=== PATIENT | female | born 1950 | race Caucasian/White ===

== ENCOUNTER 2019-08-11 15:52 | Observation (INO) | payer MEDICARE, MEDICAID, SELFPAY ==
--- NOTE | ~2019-08-11 | XR_ITS ---
EXAMINATION: XR hip LT 2V w AP pelvis DATE: 08/11/2019 16:49 INDICATION: Left hip pain post fall TECHNIQUE: Anteroposterior view of the pelvis and anteroposterior, frog leg and cross-table lateral v iews of the left hip were obtained. COMPARISON: None. FINDINGS: Alignment is normal. No fracture. Mild bilateral hip and sacroiliac osteoarthritis. Arterial calcinat ion along the bilateral femoral arteries. Soft tissues are unremarkable. IMPRESSION: 1. Mild polyarticular osteoarthritis. No acute osseous abnormality. Reviewed, dictated and finalized at location A. ENGINEER
--- NOTE | ~2019-08-11 | CT_ITS ---
EXAMINATION: CT pelvis wo con DATE: 08/11/2019 17:53 INDICATION: Left hip pain post fall TECHNIQUE: High resolution computed tomography (CT) of the pelvis was performed without intravenous c ontrast. Additional sagittal and coronal reconstructions were performed. Automated exposure control a nd iterative reconstruction technique were employed. The dose-length product was 516.87 mGy-cm. COMPARISON: Pelvis and left hip radiographs dated 08/11/2019 FINDINGS: Nondisplaced fracture at the left pubic body. Additional subtle nondisplaced fracture at the junction of the left superior pubic ramus and the anterior left acetabulum. It is unclear whether there is in tra-articular extension with no evident fracture gap or lucency along the articular cortices and no l eft hip joint effusion. Nondisplaced sagittally oriented fracture at the lateral aspect of the left s acral ala paralleling the left sacral iliac joint with no evident involvement of the neural foramina. Polyarticular osteoarthritis, mild at the left hip, mild to moderate at the right hip and severe at the bilateral lower lumbar facet joints. The uterus is not identified and has likely been surgically resected. Trace amount of free fluid in the pelvis. Visualized portion of the bowels including the ap pendix are unremarkable. IMPRESSION: 1. Nondisplaced fractures of the left sacral ala, left pubic body and at the lateral base of the left superior pubic ramus, the latter potentially with intra-articular extension at the left acetabulum. Reviewed, dictated and finalized at location A. TABLE TRIMMER IMPRESSION: 1. Nondisplaced fractures of the left sacral ala, left pubic body and at the la teral base of the left superior pubic ramus, the latter potentially with intra- articular extension at the left acetabulum.
--- NOTE | ~2019-08-11 | CT_ITS ---
EXAMINATION: CT cervical spine wo con DATE: 08/11/2019 16:27 INDICATION: Fall with head injury TECHNIQUE: Computed tomography (CT) of the cervical spine was performed without intravenous contrast. Automated exposure control and iterative reconstruction technique were employed. The dose-length pro duct was 291.74 mGy-cm. COMPARISON: 06/28/2012 FINDINGS: Unchanged straightening of the normal cervical lordosis and minimal cervical levocurvature. Vertebral body heights are normal. No fracture. Progression of disc height loss and degenerative endplate peck ges throughout the cervical spine. Disc height loss is of moderate severity at C3-C4, C4-C5 and C6-C7 and mild at C2-C3 and C5-C6. Visualized airway and apices of the lungs are clear. Cervical soft tiss ues are unremarkable. The following disc levels are specifically discussed: C2-C3: Disc is mildly bulging. There is mild bilateral uncovertebral joint osteoarthritis. There is m ild bilateral facet joint osteoarthritis. There is no neural foraminal stenosis. There is no central canal stenosis. C3-C4: Disc is bulging. There is moderate right and severe left uncovertebral joint osteoarthritis. T here is mild to moderate bilateral facet joint osteoarthritis. There is mild left neural foraminal st enosis. There is mild to moderate central canal stenosis. C4-C5: Disc is bulging. There is severe left and moderate right uncovertebral joint osteoarthritis. T here is mild bilateral facet joint osteoarthritis. There is mild bilateral neural foraminal stenosis. There is mild central canal stenosis. C5-C6: Disc is bulging. There is mild right and moderate left uncovertebral joint osteoarthritis. The re is mild bilateral facet joint osteoarthritis. There is no neural foraminal stenosis. There is mild central canal stenosis. C6-C7: Disc is bulging There is better to severe bilateral uncovertebral joint osteoarthritis. There is mild to moderate bilateral facet joint osteoarthritis. There is mild to moderate bilateral neural foraminal stenosis. There is mild central canal stenosis. C7-T1: The disc does not extend beyond the endplate margin. There is no uncovertebral joint osteoarth ritis. There is altered left and severe right facet joint osteoarthritis. There is no neural foramina l stenosis. There is no central canal stenosis. IMPRESSION: 1. Interval progression of now moderate to severe cervical spondylosis. No acute osseous abnormality. Reviewed, dictated and finalized at location A. SPECIALIST IMPRESSION: 1. Interval progression of now moderate to severe cervical spondylosis. No acut e osseous abnormality.
--- NOTE | ~2019-08-11 | XR_ITS ---
EXAMINATION: XR knee LT 3V DATE: 08/11/2019 17:41 INDICATION: Generalized left knee pain TECHNIQUE: Anteroposterior, oblique and cross-table lateral views of the left knee were obtained. COMPARISON: None. FINDINGS: Mild genu varus. No fracture. Tricompartmental osteoarthritis, advanced the medial compartment with s evere joint space loss and remodeling of the medial tibial plateau. Chondrocalcinosis in the lateral compartment. Moderate to large marginal osteophytes in all 3 compartments. No left knee joint effusio n or layering lipohemarthrosis. Arterial calcifications at the distal thigh and proximal calf. IMPRESSION: 1. No left knee joint effusion or acute osseous abnormality. 2. Tricompartmental osteoarthritis, advanced in the medial compartment. Reviewed, dictated and finalized at location A. ENT FINISHER
--- NOTE | ~2019-08-11 | XR_ITS ---
EXAMINATION: XR chest 1V portable DATE: 08/11/2019 16:48 INDICATION: Fall. Vertigo. TECHNIQUE: frontal view of the chest was obtained. COMPARISON: Chest radiograph dated 09/21/2014 FINDINGS: The lungs remain clear with no focal airspace opacities, pulmonary edema, pleural effusion or pneumot horax. The cardiomediastinal silhouette is normal. Visualized bones and soft tissues are unremarkable . IMPRESSION: 1. No acute cardiopulmonary disease. Reviewed, dictated and finalized at location A. RENCE ARCHIVIST
--- NOTE | ~2019-08-11 | CT_ITS ---
EXAMINATION: CT brain wo con INDICATION: Head injury COMPARISON: 06/28/2012 TECHNIQUE: Standard unenhanced head CT. The dose-length product (DLP) was 605.33 mGy-cm. The mA was a djusted according to patient size. Iterative reconstruction technique was employed. FINDINGS: There is no acute intraparenchymal hemorrhage. No evidence of mass lesion. No evidence of a cute infarction. There is mild periventricular and subcortical hypodensity probably related to small vessel ischemic disease. There is mild prominence of the sulci and ventricles related to cerebral atr ophy. Intracranial calcified cerebral atherosclerosis is noted. There are no extra-axial collections. There is no mass effect or midline shift. The orbits and soft tissues are unremarkable. There is mi ld mucosal thickening of the paranasal sinuses. IMPRESSION: 1. No acute intracranial abnormality. 2. Age related findings. Reviewed, dictated and finalized at location B. H MACHINE OPERATOR
[2019-08-11 16:01] VITALS: BP 175/74; PULSE 73; RESP 18; TEMP 36.6; O2SAT 100
--- NOTE | 2019-08-11 16:03 | ED.GENADULT ---
HPI - General Adult General Chief complaint: Fall Stated complaint: L HIP PAIN/S/P FALL Time Seen by Provider: 08/11/19 16:02 Source: patient and RN notes reviewed Mode of arrival: EMS Limitations: no limitations History of Present Illness HPI narrative: Pt is a 69 y/o female who presents to the ED, via EMS, with c/o a fall. Pt reports that she normally uses a wheelchair, but had been singing and dancing in her living room when she fell down hard. She notes having hit her head and having neck pain, but the most pain is in her lt hip. Pt denies syncope. Associated symptoms: other (Head injury; neck pain; lt hip pain) Related Data Home Medications Medication Instructions Recorded Confirmed atorvastatin 08/11/19 buspirone mg 08/11/19 calcitriol 08/11/19 dicyclomine mg 08/11/19 ergocalciferol (vitamin D2) 50,000 unit PO WEEKLY 08/11/19 08/11/19 escitalopram oxalate [Lexapro] 10 mg PO DAILY 08/11/19 08/11/19 insulin detemir U-100 [Levemir 15 unit SUBCUT 08/11/19 U-100 Insulin] loperamide [Imodium A-D] 2 mg PO Q2-4H PRN 08/11/19 08/11/19 lorazepam 08/11/19 lurasidone [Latuda] mg 08/11/19 magnesium oxide 400 mg PO DAILY 08/11/19 08/11/19 omega 1-ugn-zhr-fish oil [Fish Oil] 1 cap PO BID 08/11/19 08/11/19 sitagliptin [Januvia] 25 mg PO DAILY 08/11/19 08/11/19 Allergies Allergy/AdvReac Type Severity Reaction Status Date / Time propoxyphene Allergy Severe Confusion, Verified 08/11/19 16:16 LOOSES CONTROL acetaminophen Allergy Unknown Unknown Verified 08/11/19 16:16 iodine Allergy Unknown Unknown Verified 08/11/19 16:16 Contrast Media Allergy Unknown Unknown Uncoded 08/11/19 16:16 HYDROCODONE BIT Allergy Unknown Unknown Uncoded 08/11/19 16:16 Review of Systems Review of Systems: All systems reviewed & are unremarkable except as noted in HPI and below Musculoskeletal: Musculoskeletal: Reports neck pain and Reports other (lt hip pain) Neurologic: Denies syncope and Reports other (Head injury) [facility] Past Medical History Medical History (Updated 08/11/19 @ 18:44 by Pasha Guthrie DO) Uses wheelchair (Acute) Social History Social History Smoking status: Never smoker Second hand tobacco smoke exposure: No Alcohol intake: never Gender identity (if verbalized by the patient): Female Exam Narrative: Exam Narrative: APPEARANCE: Well appearing, no apparent distress, well-nourished. HEENT: normocephalic atraumtaic. TMs clear bilaterally. Oral mucosa moist. No tenderness over bilateral zygomatic arch. Full range of motion of jaw without pain. EYES: PERRL NECK: Supple. No midline tenderness to palpation. Tender palpation bilateral paravertebral muscle C5-7 RESPIRATORY: No respiratory distress. Clear to auscultation bilaterally CARDIOVASCULAR: Regular rate and rhythm without murmurs rubs or gallops. ABDOMINAL: Soft, nontender, nondistended, no rebound or guarding MUSCULOSKELETAl: Moves all extremities. No tenderness to palpation of bilateral upper and Right lower extremities. No clubbing cyanosis or edema. Tender palpation left lateral and anterior hip, no swelling or ecchymosis, pain with any motion of the hip, palpation of the anterior knee, no tenderness of the medial lateral knee, pain with flexion greater than 45 degrees, no tenderness of the ankle, dorsalis pedis pulse 2+ Back: No midline thoracic or lumbar tenderness to palpation Pelvis: Stable, nontender NEURO: Awake and alert ?3. Follows commands. Speech normal. No focal deficits. SKIN:: Warm, dry. Normal Color Course Course Emergency Course: discussed with Dr. Funk presentation work-up. States the patient is to be nonweightbearing. Agrees with consult Discussed with CORBIN Lopez presentation work-up he agrees with admission at this time Discussed with patient and family results of workup and diagnosis. Discussed need for admission. Patient and family understand and agree to current treatment plan Vital Signs Vital signs: Vital Signs
--- NOTE | 2019-08-11 17:39 | PC.NURSE ---
PT getting Xrays and then going [place] [facility] [place]
--- NOTE | 2019-08-11 18:32 | PC.NURSE ---
Mini mental evaluation sent to [facility] for review
[2019-08-11 18:47] LABS: Basophils Percent Auto 0.2 % (0.2-1.2); Eosinophils Absolute Auto 0.1 K/mm3 (0-0.3); Eosinophils Percent Auto 0.8 % (0-4.4); Hematocrit 26.5 % (37.0-47.0); Hemoglobin 8.6 g/dL (12.0-15.0); Immature Granulocyte Absolute 0.08 K/mm3 (0.00-0.031); Immature Granulocyte Percent A 0.9 % (0-0.5); Lymphocytes Absolute Auto 0.68 K/mm3 (0.9-3.2); Lymphocytes Percent Auto 7.7 % (18.3-44.2); Mean Corpuscular HGB Conc 32.5 g/dl (32-36); Mean Corpuscular Volume 95.7 fl (80-100); Mean Platelet Volume 10.3 fl (7.4-10.4); Monocytes Absolute Auto 0.7 K/mm3 (0.1-0.6); Monocytes Percent Auto 7.6 % (2.6-8.5); Neutrophils Absolute Auto 7.3 K/mm3 (1.3-6.7); Neutrophils Percent Auto 82.8 % (45.5-73.1); Platelet Count Result 138 k/mm3 (150-375); Red Blood Count 2.77 M/mm3 (4.2-5.4); Red Cell Distribution Width 12.8 % (11.5-14.5); White Blood Count 8.8 K/mm3 (4.5-10.0)
[2019-08-11 18:59] LABS: Blood Urea Nitrogen 72 mg/dL (7-17); Calcium 10.1 mg/dL (8.4-10.2); Carbon Dioxide 21 mmol/L (22-30); Chloride 107 mmol/L (98-107); Estimated CRCL calculation 12 ml/min; Estimated Glomerular Filt Rate 11; Glucose 112 mg/dL (65-105); Sodium 141 mmol/L (137-145)
[2019-08-11 19:05] VITALS: BP 158/67; PULSE 81; RESP 16; O2SAT 100
[2019-08-11 20:01] VITALS: BP 179/73; PULSE 82; RESP 18; O2SAT 94
[2019-08-11 20:15] VITALS: BP 154/72; PULSE 84; RESP 18; TEMP 36.7; O2SAT 100; BMI 31.1
[2019-08-11 21:36] LABS: Glucose Point of Care 108 (65-105)
[2019-08-11] MEDS: MORPHINE SULFATE 2 MG/ML INJ IV PUSH (22:52)
[2019-08-12 00:12] VITALS: BP 121/57; PULSE 77; RESP 18; TEMP 36.6; O2SAT 97
--- NOTE | 2019-08-12 01:22 | ADMGEN ---
This patient, Basilia Benoit, was admitted to 3 [facility] Surg Room 317-2014. Patient/family oriented to hospital policies and general routines including ID bracelet, bed and alarms, visiting hours, pain management, procedures, bathroom and other care routines, personal items, smoking policy, room service/diet, and visiting hours. Valuables list has been completed. Information on how to activate the Rapid Response Team has been discussed. Patient/Family are encouraged to report perceived risks to care and to ask questions if they do not understand what they are told or what they should do.
[2019-08-12] MEDS: MORPHINE SULFATE 2 MG/ML INJ IV PUSH ×4 (02:41→14:15)
[2019-08-12 06:45] LABS: Blood Urea Nitrogen 70 mg/dL (7-17); Calcium 9.4 mg/dL (8.4-10.2); Carbon Dioxide 22 mmol/L (22-30); Chloride 108 mmol/L (98-107); Estimated CRCL calculation 14 ml/min; Estimated Glomerular Filt Rate 12; Glucose 91 mg/dL (65-105); Potassium 4.2 mmol/L (3.4-5.0); Sodium 140 mmol/L (137-145)
[2019-08-12 07:25] LABS: Basophils Percent Auto 0.2 % (0.2-1.2); Eosinophils Absolute Auto 0.1 K/mm3 (0-0.3); Hematocrit 23.9 % (37.0-47.0); Hemoglobin 7.5 g/dL (12.0-15.0); Immature Granulocyte Absolute 0.03 K/mm3 (0.00-0.031); Immature Granulocyte Percent A 0.6 % (0-0.5); Lymphocytes Absolute Auto 0.96 K/mm3 (0.9-3.2); Lymphocytes Percent Auto 18.9 % (18.3-44.2); Mean Corpuscular HGB Conc 31.4 g/dl (32-36); Mean Corpuscular Hemoglobin 30.1 pg (26-34); Mean Platelet Volume 10.9 fl (7.4-10.4); Monocytes Absolute Auto 0.7 K/mm3 (0.1-0.6); Monocytes Percent Auto 13.6 % (2.6-8.5); Neutrophils Absolute Auto 3.4 K/mm3 (1.3-6.7); Neutrophils Percent Auto 65.7 % (45.5-73.1); Platelet Count Result 126 k/mm3 (150-375); Red Blood Count 2.49 M/mm3 (4.2-5.4); Red Cell Distribution Width 13.1 % (11.5-14.5); White Blood Count 5.1 K/mm3 (4.5-10.0)
--- NOTE | 2019-08-12 07:48 | PM.CNOR ---
Assessment and Plan Assessment and plan (1) Closed fracture of superior ramus of left pubis: Onset Date: 08/11/19 Qualifiers: Encounter type: initial encounter Qualified Code(s): S32.512A - Fracture of superior rim of left pubis, initial encounter for closed fracture Code(s): S32.512A - Fracture of superior rim of left pubis, initial encounter for closed fracture Status: Acute Assessment and Plan: patient seen and examined. Radiographs and CT scan reviewed. Left pelvis ilium fracture with minimal displacement. Left sacral ala fracture. Left superior ramus fracture extending to the acetabulum. Discussed with patient. Operative and non operative treatment with the risks, benefits and alternatives discussed in detail. Fractures are nondisplaced. Should do well with non operative treatment. Discussed risk of late displacement or problems with healing. At this point having difficulty with pain control and mobilization. Consult physical therapy and occupational therapy with weight-bearing as tolerated. Will most likely need assistance and will be difficult to mobilize. We will need to work on placement. Conservative measures with ice, pain control while trying to limit narcotics secondary to dementia. (2) Pelvis ilium fracture: Onset Date: 08/11/19 Code(s): S32.309A - Unspecified fracture of unspecified ilium, initial encounter for closed fracture Status: Acute (3) Closed sacral fracture: Onset Date: ~08/11/19 Qualifiers: Encounter type: initial encounter Zone of sacrum fracture: unspecified portion of sacrum Qualified Code(s): S32.10XA - Unspecified fracture of sacrum, initial encounter for closed fracture Code(s): S32.10XA - Unspecified fracture of sacrum, initial encounter for closed fracture Status: Acute History of Present Illness HPI Consult date: 08/12/19 Requesting physician: Candelario Mcnulty Consult reason: fracture ( Pelvis) Chief complaint: LEFT SACRAL SHERYL FRACTURE,LEFT PUBIC BODY FRACTURE Narrative: 69-year-old woman care home resident with history of dementia fell last evening from standing height. Fall onto left side. Unable to bear weight. Was brought to the emergency room. Complained of left hip pain. Has history of arthritis. History of peripheral neuropathy. No new neurologic complaints. Patient states she did hit her head when she fell but no loss of consciousness. Pain whenever she tries to move the left leg which is sharp. Radiates to the thigh. Review of Systems Constitutional: Constitutional: Reports frequent falls Eyes: Eyes: Reports loss of vision ENT: Denies hearing loss Cardiovascular: Cardiovascular: Denies chest pain Respiratory: Respiratory: Denies dyspnea Gastrointestinal: Gastrointestinal: Reports abdominal pain, Denies early satiety and Denies nausea Genitourinary: Genitourinary: Denies frequent urination Musculoskeletal: Musculoskeletal: Reports arthralgias Integumentary/Breasts: Skin/Breast: Denies bleeding lesions Neurologic: Denies confusion Psychiatric: Psychiatric: Reports confusion and Reports memory loss Endocrine: Endocrine: Denies heat intolerance Hematologic/Lymphatic: Hematologic/Lymphatic: Reports other ( Anemia) Allergic/Immunologic: Allergic/Immunologic: Denies wheezing PMFSH Past Medical History Medical History (Updated 08/12/19 @ 08:12 by Haim Funk MD) Elbow fracture, right (Acute) Tibial fracture (Acute) Uses wheelchair (Acute) Surgical History Surgical History (Updated 08/12/19 @ 07:56 by Haim Funk MD) Ankle fracture, right (Acute) Social History Social History Smoking status: Never smoker Second hand tobacco smoke exposure: No Alcohol intake: never Substance use: never Substance use type: does not use Gender identity (if verbalized by the patient): Female Spiritual care concerns: No Agree to blood products: Yes
[2019-08-12 09:01] VITALS: BP 145/49; PULSE 82; RESP 20; TEMP 37.1; O2SAT 100
[2019-08-12 10:17] LABS: Glucose Point of Care 115 (65-105)
--- NOTE | 2019-08-12 10:35 | PM.SD ---
Same Day Admit/Disch: HPI History of Present Illness Chief complaint: LEFT SACRAL SHERYL FRACTURE,LEFT PUBIC BODY FRACTURE Narrative: Basilia Benoit is a 69 year old female. She was seeing area gait while dancing at [facility] yesterday. She lost her balance and fell. EMS was summoned. She was brought to the emergency department where she was found to have a left pelvic fracture. She has pain in the left hip and pelvis region. [id number] rest. Severe with movement. She has chronic paresthesias in both lower extremities. Nothing new since the fracture. [facility] Past Medical History Medical History (Updated 08/12/19 @ 11:08 by Bonilla David MD) Anemia associated with stage 4 chronic renal failure (Acute) CAD (coronary artery disease) (Acute) Elbow fracture, right (Acute) Hypertension, essential (Acute) Tibial fracture (Acute) Type 2 diabetes mellitus with diabetic neuropathy (Acute) Uses wheelchair (Acute) Surgical History Surgical History (Updated 08/12/19 @ 07:56 by Haim Funk MD) Ankle fracture, right (Acute) Social History Social History Smoking status: Never smoker Second hand tobacco smoke exposure: No Alcohol intake: never Substance use: never Substance use type: does not use Gender identity (if verbalized by the patient): Female Spiritual care concerns: No Agree to blood products: Yes Same Day Admit/Disch: Med Pre-admit Medications Home Medications Medication Instructions Recorded Confirmed Type acetaminophen [Tylenol Extra 500 mg PO TID PRN 08/11/19 08/11/19 History Strength] alum-mag hydroxide-simeth [Maalox 30 ml PO Q6H PRN 08/11/19 08/12/19 History Advanced] atorvastatin 10 mg PO HS 08/11/19 08/11/19 History buspirone 10 mg PO TID 08/11/19 08/11/19 History calcitriol 0.25 mcg PO DIRECTED 08/11/19 08/11/19 History carvedilol 25 mg PO BID 08/11/19 08/11/19 History cyanocobalamin (vitamin B-12) 1,000 mcg PO DAILY 08/11/19 08/11/19 History dicyclomine 10 mg PO TID 08/11/19 08/11/19 History diphenhydramine-zinc acetate 1 applic TOPICAL BID PRN 08/11/19 08/12/19 History [Benadryl Itch Stopping] docusate sodium [Colace] 100 mg PO BID PRN 08/11/19 08/12/19 History epoetin aliya [Epogen] 10,000 unit SUBCUT DIRECTED 08/11/19 08/12/19 History ergocalciferol (vitamin D2) 50,000 unit PO WEEKLY 08/11/19 08/11/19 History escitalopram oxalate [Lexapro] 10 mg PO DAILY 08/11/19 08/11/19 History folic acid 1 mg PO BID 08/11/19 08/11/19 History guaifenesin 400 mg PO Q6H PRN 08/11/19 08/12/19 History hydralazine 100 mg PO TID 08/11/19 08/11/19 History insulin detemir U-100 [Levemir 15 unit SUBCUT HS 08/11/19 08/11/19 History U-100 Insulin] iron ps [id number] acid 1 cap PO BID 08/11/19 08/12/19 History [Poly-Iron 150 Forte] isosorbide mononitrate 60 mg PO DAILY 08/11/19 08/11/19 History lidocaine HCl [Aspercreme 1 applic TOPICAL DIRECTED PRN 08/11/19 08/12/19 History (lidocaine)] loperamide [Imodium A-D] 2 mg PO PRN PRN 08/11/19 08/11/19 History lurasidone [Latuda] 60 mg PO QPM 08/11/19 08/11/19 History magnesium oxide 400 mg PO DAILY 08/11/19 08/11/19 History melatonin 10 mg PO HS 08/11/19 08/11/19 History methyl salicylate-menthol [Muscle 1 applic TOPICAL DIRECTED PRN 08/11/19 08/12/19 History Rub] multivitamin 1 tablet PO DAILY 08/11/19 08/11/19 History nitroglycerin 0.4 mg SUBLINGUAL Q5-15M PRN 08/11/19 08/11/19 History omega 1-vew-udo-fish oil [Fish Oil] 2 cap PO BID 08/11/19 08/11/19 History ondansetron HCl [Zofran] 4 mg PO Q8H PRN 08/11/19 08/11/19 History oxybutynin chloride 15 mg PO BID 08/11/19 08/11/19 History pantoprazole 20 mg PO QAM 08/11/19 08/11/19 History polyvinyl alcohol [Artificial 1 drp OPHTHALMIC (EYE) BID 08/11/19 08/11/19 History Tears (polyvin alc)] quetiapine [Seroquel] 300 mg PO HS 08/11/19 08/11/19 History sitagliptin [Januvia] 25 mg PO DAILY 08/11/19 08/11/19 History sodium chloride [Saline Nasal] 2 spray INT
[2019-08-12] MEDS: CALCITRIOL 0.25 MCG CAPSULE PO (11:43)
[2019-08-12] MEDS: ESCITALOPRAM OXALATE 10 MG TABLET PO (11:43)
[2019-08-12] MEDS: MULTIVITAMINS THERAPEUTIC TAB (*BKC) 1 TABLET PO (11:44)
[2019-08-12] MEDS: CYANOCOBALAMIN 1,000 MCG TABLET 1000 MCG PO (11:44)
[2019-08-12] MEDS: ISOSORBIDE MONONITRATE 60 MG TAB.ER.24H PO (11:44)
[2019-08-12] MEDS: MAGNESIUM OXIDE 400 MG TABLET PO (11:44)
[2019-08-12] MEDS: PANTOPRAZOLE SOD SESQUIHYDRATE 20 MG TAB PO (11:44)
[2019-08-12 11:45] VITALS: PULSE 82
[2019-08-12] MEDS: carvediloL 25 MG TABLET PO (11:45)
[2019-08-12] MEDS: OXYBUTYNIN CHLORIDE 5 MG TABLET 15 MG PO (11:45)
[2019-08-12] MEDS: TICAGRELOR 60 MG TABLET PO (11:45)
[2019-08-12] MEDS: FOLIC ACID 1 MG TABLET PO (11:45)
[2019-08-12] MEDS: LORAZEPAM 0.5 MG TABLET PO (11:46)
[2019-08-12] MEDS: busPIRone HCL 10 MG TABLET PO (11:46)
[2019-08-12] MEDS: hydrALAZINE HCL 50 MG TABLET 100 MG PO (11:46)
[2019-08-12] MEDS: MENTHOL 10% / METHYL SALICYLATE 15% 57 GM TUBE 1 APPLIC TOPICAL (11:56)
[2019-08-12 14:00] VITALS: BP 127/54; PULSE 84; RESP 18; TEMP 37.2; O2SAT 100
[2019-08-12 14:30] LABS: Glucose Point of Care 123 (65-105)
== END 2019-08-12 16:30 ==
LOC: ANHED 18:44 → ANH3MEDSUR 20:17
PROVIDERS: Emergency Medicine; Admitting Provider Hospitalist; Emergency Provider Emergency Medicine; PCP Family Medicine; Visit Provider Internal Medicine
DX: S32.512A Fracture of superior rim of left pubis, initial encounter for closed fracture (principal); S32.10XA Unspecified fracture of sacrum, initial encounter for closed fracture; S32.309A Unspecified fracture of unspecified ilium, initial encounter for closed fracture; S16.1XXA Strain of muscle, fascia and tendon at neck level, initial encounter; S00.93XA Contusion of unspecified part of head, initial encounter; I25.10 Atherosclerotic heart disease of native coronary artery without angina pectoris; I12.9 Hypertensive chronic kidney disease with stage 1 through stage 4 chronic kidney disease, or unspecified chronic kidney disease; E11.22 Type 2 diabetes mellitus with diabetic chronic kidney disease; N18.4 Chronic kidney disease, stage 4 (severe); D63.1 Anemia in chronic kidney disease; E11.42 Type 2 diabetes mellitus with diabetic polyneuropathy; F03.90 Unspecified dementia, unspecified severity, without behavioral disturbance, psychotic disturbance, mood disturbance, and anxiety; Z99.3 Dependence on wheelchair; W01.0XXA Fall on same level from slipping, tripping and stumbling without subsequent striking against object, initial encounter; Y93.41 Activity, dancing; Z79.4 Long term (current) use of insulin; Z79.899 Other long term (current) drug therapy
CPT/HCPCS: 36415; 70450; 71045; 72125; 72192; 73502; 73521; 73562; 80048; 85025; 87081; 96365; 96366; 96375; 96376; 99285; A9270; G0378; J0131; J2270

== ENCOUNTER 2019-09-18 07:51 | Outpatient (RCR) | payer MEDICARE, MEDICAID, SELFPAY ==
[2019-08-24 07:40] LABS: Hematocrit 25.3 % (37.0-47.0)
[2019-08-24 09:06] VITALS: BP 137/60; PULSE 63; RESP 18; TEMP 36.7; O2SAT 100
[2019-08-24 09:20] VITALS: BP 130/61; PULSE 64; RESP 16; TEMP 37.1; O2SAT 100
[2019-08-24 10:20] VITALS: BP 133/62; PULSE 72; RESP 16; TEMP 37.2; O2SAT 100
[2019-08-24 11:10] VITALS: BP 142/69; PULSE 65; RESP 16; TEMP 37.3; O2SAT 100
[2019-08-24] MEDS: FUROSEMIDE INJ 40 MG/4 ML VIAL IV PUSH (11:17)
[2019-09-18] VITALS (8 sets, daily range): BP systolic 105–144; BP diastolic 48–78; PULSE 64–87; RESP 12–15; TEMP 36.6–37.1; O2SAT 97–100
[2019-09-18 08:14] LABS: Hematocrit 26.1 % (37.0-47.0)
[2019-09-18] MEDS: FUROSEMIDE INJ 40 MG/4 ML VIAL 20 MG IV PUSH (13:00)
== END 2019-11-22 23:59 | disposition home or self-care (01) ==
LOC: ANHCPCTRAN 07:51
PROVIDERS: PCP Family Medicine; Visit Provider Family Medicine
DX: N18.9 Chronic kidney disease, unspecified (principal); D63.1 Anemia in chronic kidney disease
CPT/HCPCS: 36415; 36430; 85014; 85018; 86850; 86900; 86901; 86920; 86923; 96374; J1940; P9016

== ENCOUNTER 2019-12-18 07:12 | Outpatient (RCR) | payer MEDICARE, MEDICAID, SELFPAY ==
[2019-12-18 08:00] LABS: Hematocrit 26.1 % (37.0-47.0); Hemoglobin 8.1 g/dL (12.0-15.0)
[2019-12-18 10:13] VITALS: BP 130/66; PULSE 74; RESP 15; TEMP 36.6; O2SAT 100
[2019-12-18 10:25] VITALS: BP 113/56; PULSE 69; RESP 17; TEMP 36.6; O2SAT 100
[2019-12-18 11:25] VITALS: BP 136/64; PULSE 64; RESP 14; TEMP 36.6; O2SAT 100
== END 2020-03-17 23:59 | disposition home or self-care (01) ==
LOC: ANHCPCTRAN 07:12
PROVIDERS: PCP Family Medicine; Visit Provider Family Medicine
DX: N18.5 Chronic kidney disease, stage 5 (principal); D63.1 Anemia in chronic kidney disease
CPT/HCPCS: 36415; 36430; 85014; 85018; 86850; 86900; 86901; 86923; P9016

== ENCOUNTER 2020-01-25 10:18 | Inpatient (IN) | payer MEDICARE, MEDICAID, SELFPAY ==
[2020-01-25] VITALS (7 sets, daily range): BP systolic 95–140; BP diastolic 42–59; PULSE 65–78; RESP 18–20; TEMP 36.6–37.7; O2SAT 94–99; BMI 26.6
--- NOTE | ~2020-01-25 | XR_ITS ---
XR chest 1V portable DATE: 01/25/2020 11:17 INDICATION: Cough TECHNIQUE: Portable AP view on 01/25/2020 at 1112 hours COMPARISON: 09/01/2019 portable AP chest FINDINGS: There is new patchy infiltrate in the left mid and lower lung zones and mild infiltrate or atelectasis at the right lung base. Heart size is likely within normal range considering magnification associated with AP projection. The re is thoracic and abdominal aortic calcification. Diffuse osteopenia. Osteoarthritic changes at the glenohumeral joints. IMPRESSION: Bilateral infiltrates, left greater than right Reviewed, dictated and finalized at location A.
--- NOTE | 2020-01-25 10:48 | ED.GENADULT ---
HPI - General Adult General Chief complaint: Weakness Stated complaint: LETHARGY Time Seen by Provider: 01/25/20 10:44 Source: patient and EMS Mode of arrival: EMS Limitations: no limitations History of Present Illness HPI narrative: Patient is a 69-year-old female who presents from [facility] for weakness, pneumonia, fever. Per EMS, patient has reportedly had increased weakness and myalgias since being diagnosed with pneumonia yesterday. Patient has had fever, productive cough. Patient has not required any oxygen therapy, and is not on oxygen at their facility. Patient currently reporting cough, myalgias, diffuse weakness. No focal numbness. No urinary symptoms. She reports mild headache. Patient with contact at the facility, at this facility is noted to have numerous coronavirus infections. Related Data Home Medications Medication Instructions Recorded Confirmed Benadryl Itch Stopping 1 applic TOPICAL BID PRN 08/11/19 11/20/19 Brilinta 60 mg PO Q12H 08/11/19 11/20/19 Latuda 60 mg PO QPM 08/11/19 11/20/19 Levemir U-100 Insulin 15 unit SUBCUT HS 08/11/19 11/20/19 Muscle Rub 1 applic TOPICAL DIRECTED PRN 08/11/19 11/20/19 Poly-Iron 150 Forte 1 cap PO BID 08/11/19 11/20/19 alum-mag hydroxide-simeth [Maalox 30 ml PO Q6H PRN 08/11/19 11/20/19 Advanced] atorvastatin 10 mg PO HS 08/11/19 11/20/19 buspirone 10 mg PO TID 08/11/19 11/20/19 calcitriol 0.25 mcg PO DIRECTED 08/11/19 11/20/19 carvedilol 25 mg PO BID 08/11/19 11/20/19 cyanocobalamin (vitamin B-12) 1,000 mcg PO DAILY 08/11/19 11/20/19 dicyclomine 10 mg PO TID 08/11/19 11/20/19 docusate sodium [Colace] 100 mg PO BID PRN 08/11/19 11/20/19 ergocalciferol (vitamin D2) 50,000 unit PO WEEKLY 08/11/19 11/20/19 escitalopram oxalate [Lexapro] 10 mg PO DAILY 08/11/19 11/20/19 folic acid 1 mg PO BID 08/11/19 11/20/19 guaifenesin 400 mg PO Q6H PRN 08/11/19 11/20/19 hydralazine 100 mg PO TID 08/11/19 11/20/19 isosorbide mononitrate 60 mg PO DAILY 08/11/19 11/20/19 lidocaine HCl [Aspercreme 1 applic TOPICAL DIRECTED PRN 08/11/19 11/20/19 (lidocaine)] magnesium oxide 400 mg PO DAILY 08/11/19 11/20/19 melatonin 10 mg PO HS 08/11/19 11/20/19 nitroglycerin 0.4 mg SUBLINGUAL Q5-15M PRN 08/11/19 11/20/19 omega 5-cbr-nkw-fish oil [Fish Oil] 2 cap PO BID 08/11/19 11/20/19 ondansetron HCl [Zofran] 4 mg PO Q8H PRN 08/11/19 11/20/19 oxybutynin chloride 15 mg PO BID 08/11/19 11/20/19 pantoprazole 20 mg PO QAM 08/11/19 11/20/19 polyvinyl alcohol [Artificial 1 drp OPHTHALMIC (EYE) BID 08/11/19 11/20/19 Tears (polyvin alc)] quetiapine [Seroquel] 300 mg PO HS 08/11/19 11/20/19 sodium chloride [Saline Nasal] 2 spray INTRANASAL Q2H PRN 08/11/19 11/20/19 tamsulosin [Flomax] 0.4 mg PO HS 08/11/19 11/20/19 azithromycin 01/25/20 ceftriaxone 1 g IM DAILY 01/25/20 insulin detemir U-100 [Levemir 5 unit SUBCUT 01/25/20 U-100 Insulin] quetiapine 50 mg PO BID 01/25/20 Allergies Allergy/AdvReac Type Severity Reaction Status Date / Time propoxyphene Allergy Severe Confusion, Verified 11/20/19 13:44 LOOSES CONTROL acetaminophen Allergy Unknown Unknown Verified 11/20/19 13:44 hydrocodone Allergy Unknown Unknown Verified 11/20/19 13:44 iodine Allergy Unknown Unknown Verified 11/20/19 13:44 iohexol Allergy Unknown Unknown Verified 11/20/19 13:44 [From CONTRAST - CT, XRAY] methylprednisolone Allergy Unknown Verified 11/20/19 13:44 [From Medrol] Penicillins Allergy Unknown Verified 11/20/19 13:44 trazodone Allergy Unknown Verified 11/20/19 13:44 Review of Systems Review of Systems: Narrative: CONSTITUTIONAL: Reports fever and chills EYES: Denies visual changes, redness, or discharge. ENT: Denies rhinorrhea, congestion, sore throat, or otalgia. CARDIOVASCULAR: Denies chest pain, palpitations, or edema. RESPIRATORY: Reports cough and shortness of breath GASTROINTESTINAL: Denies abdominal pain, nausea, vomiting, or diarrhea. GENITOURINARY: Den
--- NOTE | 2020-01-25 10:49 | ECG_ITS ---
Measurements Intervals [place] Rate: 72 P: 63 TX: 182 QRS: -26 QRSD: 100 T: 24 QT: 429 QTc: 472 Interpretive Statements SINUS RHYTHM NORMAL ECG Electronically Signed On 01-25-2020 11:49:22 CDT by Rhett Roldan D.O.
[2020-01-25 11:19] LABS: Basophils Percent Auto 0.1 % (0.2-1.2); Eosinophils Percent Auto 0.1 % (0-4.4); Hemoglobin 7.2 g/dL (12.0-15.0); Immature Granulocyte Absolute 0.04 K/mm3 (0.00-0.031); Immature Granulocyte Percent A 0.5 % (0-0.5); Lymphocytes Absolute Auto 0.77 K/mm3 (0.9-3.2); Lymphocytes Percent Auto 9.9 % (18.3-44.2); Mean Corpuscular HGB Conc 31.3 g/dl (32-36); Mean Corpuscular Hemoglobin 30.9 pg (26-34); Mean Corpuscular Volume 98.7 fl (80-100); Mean Platelet Volume 11.4 fl (7.4-10.4); Monocytes Absolute Auto 0.8 K/mm3 (0.1-0.6); Monocytes Percent Auto 9.7 % (2.6-8.5); Neutrophils Absolute Auto 6.2 K/mm3 (1.3-6.7); Neutrophils Percent Auto 79.7 % (45.5-73.1); Platelet Count Result 93 k/mm3 (150-375); Red Blood Count 2.33 M/mm3 (4.2-5.4); Red Cell Distribution Width 12.5 % (11.5-14.5); White Blood Count 7.8 K/mm3 (4.5-10.0)
[2020-01-25 11:23] LABS: Add Urine Microscopic? YES; Appearance Urine Clear (Clear); Bilirubin Urine Negative (Negative); Blood Urine Negative (Negative); Color Urine Yellow (Yellow); Glucose Urine UA Negative (Negative); Ketones Urine Negative (Negative); Leukocyte Esterase Ur 1+ LEU/UL (Negative); Mucus Urine Rare /lpf; Nitrate Urine Negative (Negative); Protein Urine 1+ mg/dL (Negative); RBC Urine 0-2 /hpf (0-2); Specific Grav Ur 1.014 (1.001-1.035); Squamous Epithelial Cell Urine Occasional /hpf (Few); Urobilinogen Urine Negative mg/dL (<2.0)
[2020-01-25 11:27] LABS: Alveolar/Arterial O2 Gradient 44.1 mmHg; Base Excess ABG -4.5 mEq/l (+/-2.0); Carboxyhemoglobin 0.7 % THb (0-2.0); Fractional Inspired Oxygen 21 %; HCO3 ABG 20.4 mEq/l (22.0-26.0); Methemoglobin ABG 0.2 %THb (0-1.5); Oxygen Content ABG 10.3 %vol (16.0-22.0); Oxygen Saturation ABG 90.9 % (95.0-100.0); Oxyhemoglobin 87.6 % THb (90.0-100.0); PCO2 ABG 36.9 mmHg (35.0-45.0); PO2 ABG 61.4 mmHg (80.0-100.0); PO2 FiO2 Ratio Arterial Blood 2.92 %; Reduced Hemoglobin 11.5 %THb (0-5.0); Total Hemoglobin 8.3 g/dL (12.0-18.0); pH ABG 7.361 (7.350-7.450)
[2020-01-25 11:28] LABS: Device ROOM AIR; Modified Allen's Test Pass; Site Drawn RIGHT RADIAL
[2020-01-25 11:29] LABS: INR 1.2; Prothrombin Time 15.2 Seconds (11.1-14.7)
[2020-01-25 11:31] LABS: Partial Thromboplastin Time 97.4 SECONDS (22.3-36.8)
[2020-01-25 11:33] LABS: Lactic Acid Reflex 0.7 mmol/L (0.7-2.1)
[2020-01-25 11:42] LABS: NT Pro B Type Natriuretic Pept 1040 PG/ML (5-100); Troponin I 0.033 ng/mL (0.000-0.034)
[2020-01-25 11:44] LABS: Alanine Aminotransferase 23 U/L (4-35); Albumin Level 3.8 g/dL (3.5-5.1); Alkaline Phosphatase 66 U/L (38-126); Aspartate Amino Transferase 42 U/L (14-36); Bilirubin,Total 0.3 mg/dL (0.2-1.3); Blood Urea Nitrogen 103 mg/dL (7-17); CRP 14.9 mg/dL (<1.0); Calcium 9.7 mg/dL (8.4-10.2); Carbon Dioxide 23 mmol/L (22-30); Chloride 105 mmol/L (98-107); Estimated Glomerular Filt Rate 8; Glucose 102 mg/dL (65-105); Lactate Dehydrogenase 470 U/L (313-618); Potassium 4.4 mmol/L (3.4-5.0); Sodium 139 mmol/L (137-145)
[2020-01-25] MEDS: SODIUM CHLORIDE 0.9% IV 500 ML 999 ML IV CONT (12:05)
--- NOTE | 2020-01-25 14:58 | ADMGEN ---
This patient, Basilia Benoit, was admitted to [facility] Surg Room 326-01. Patient/family oriented to hospital policies and general routines including ID bracelet, bed and alarms, visiting hours, pain management, procedures, bathroom and other care routines, personal items, smoking policy, room service/diet, and visiting hours. Valuables list has been completed. Information on how to activate the Rapid Response Team has been discussed. Patient/Family are encouraged to report perceived risks to care and to ask questions if they do not understand what they are told or what they should do.
--- NOTE | 2020-01-25 17:14 | PM.CNNEP ---
Assessment and Plan Assessment and plan (1) CKD (chronic kidney disease) stage 5, GFR less than 15 ml/min: Code(s): N18.5 - Chronic kidney disease, stage 5 Status: Acute Assessment and Plan: The patient has chronic kidney disease. This is due to diabetes and hypertension. Her creatinine is 5.5. Her renal function has been slowly deteriorating over the last several years. It is pretty bad right now and if she wanted to do dialysis we would start soon. Right now does not seem like she has a whole lot of symptoms from her uremia. She is eating pretty well, she does not have any nausea, and her fluid status seems okay. For now I will continue to watch her conservatively. Because she does not want dialysis, I talked to her about code status. I think she would be open to a conversation limiting aggressiveness of care. Long discussion with the patient. (2) Pneumonia: Qualifiers: Laterality: bilateral Lung location: unspecified part of lung Pneumonia type: due to unspecified organism Qualified Code(s): J18.9 - Pneumonia, unspecified organism Code(s): J18.9 - Pneumonia, unspecified organism Status: Acute Assessment and Plan: Bilateral infiltrates. She is not on oxygen. She does have a bit of a cough. [place] is in her care home. (3) Anemia associated with stage 4 chronic renal failure: Code(s): N18.4 - Chronic kidney disease, stage 4 (severe); D63.1 - Anemia in chronic kidney disease Status: Acute Assessment and Plan: Hemoglobin is 7.2. Consider blood transfusion. Will give her EPO (4) CAD (coronary artery disease): Code(s): I25.10 - Atherosclerotic heart disease of [place] coronary artery without angina pectoris Status: Acute Assessment and Plan: No chest pain. (5) Type 2 diabetes mellitus with diabetic neuropathy: Code(s): E11.40 - Type 2 diabetes mellitus with diabetic neuropathy, unspecified Status: Acute Assessment and Plan: She is on Accu-Cheks and sliding-scale insulin History of Present Illness Reason for Consult Consult date: 01/25/20 Chief Complaint Chief complaint: pneumonia History of Present Illness Narrative: Basilia is a very pleasant 69-year-old lady who has multiple medical problems including chronic kidney disease with a GFR that runs in the low teens, anemia, arthritis, coronary disease, hypertension, diabetes, tibial fracture, elbow fracture. The patient says that she fell in August and has had pain in the buttocks and hips since then. The patient lives at [facility] re[facility] and apparently was diagnosed with pneumonia yesterday. Since then she has been progressively weaker and so came to the emergency room today. She does have a cough. She thinks she might have had a fever yesterday but low-grade. She has no shortness of breath. No sinus issues, no urinary issues, belly is okay. No skin rash. She has been seeing me in the office for years. In the last couple of years her GFR has dropped below 20. I talked to her at length about the possibility of dialysis in the future and she absolutely positively does not want dialysis. I asked her about code status. She is rethinking whether she really wants to be a full code. Review of Systems Constitutional: Constitutional: Reports no additional constitutional complaints Eyes: Eyes: Reports no additional eye complaints ENT: Reports system reviewed and no additional complaints, except as documented Cardiovascular: Cardiovascular: Reports no additional cardiovascular complaints Respiratory: Respiratory: Reports no additional respiratory complaints Gastrointestinal: Gastrointestinal: Reports no additional gastrointestinal complaints Genitourinary: Genitourinary: Reports no additional female genitourinary complaints Musculoskeletal: Musculoskeletal: Reports no additional musculoskeletal complaints Integumentary/Breasts:
[2020-01-25 19:40] LABS: Iron 38 ug/dL (37-170)
[2020-01-25 19:49] LABS: Percent Iron Saturation 20 % (20-50)
--- NOTE | 2020-01-25 21:05 | PM.IMHP ---
H&P: HPI History of Present Illness Chief complaint: Increasing weakness, cough Narrative: Date and time of patient contact: 01/25/2020 at 10:00 p.m. Basilia Benoit is a 69 year old female with a past medical history of chronic kidney disease stage 5, hypertension, coronary artery disease and diabetes who presented to the ER from [facility] via EMS due to progressive weakness and myalgias over the last couple of days. Patient was diagnosed with pneumonia yesterday after developing productive cough and fever at the detention. She had not had any oxygen requirement but has had increasing shortness of breath. Her pulse ox in the ER was borderline low at 90 3% on room air. She states that she has been having a cough for couple of weeks but the patient herself is a poor historian. However her cough became productive of green sputum yesterday. She denies any fevers or chills. She reports lower abdominal pain that is not for reproducible to palpation. She reports that his cramping in nature and mild. She is requesting pain medications. She reports that she is urinating more frequently due to her coughing. She denies any dysuria. Patient reports that she is edentulous but usually wears upper dentures. She denies any loss of taste. She has had decreased appetite. She states that the detention is still giving her nebulizers. However, there were not nebulizers on her home med rec. She has been having a mild intermittent headache. Her last bowel movement was yesterday. She has not had any nausea or vomiting. The patient is a fair to poor historian. Her review of systems seems variable depending on how the question is asked. Source of information is patient report and past medical records. Strep screen was negative in the ER Influenza a and B was negative in the ER Review of Systems Review of Systems: Narrative: 12 systems were reviewed with pertinent positives and negatives per HPI. Except as documented in the HPI, all other systems were reviewed and are negative. However somewhat limited as the patient is only a fair to poor historian and the reliability of her review of systems is somewhat questionable. [facility] Past Medical History Medical History (Updated 01/25/20 @ 21:51 by Fabienne Marie, DO) Anemia in chronic kidney disease Anxiety Arthritis of knee Bipolar disorder C. 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:: Cath ([facility]: Mid RCA 70-80% stenosis; PCI and stenting of mid RCA.) - 03/31/2004 Echo/MUGA:: Echo (EF 60-65%, mild LVH, grade I diastolic dysfunction (E/e' 8), mild LAE, mod MAC.) - 06/19/2019 Echo (EF normal; mild LVH, mild LAE, trace AI, trace-mild MR, mild TR.) - 04/20/2014 Electrophysiology:: EKG (Sinus rhythm, borderline AV conduction delay, inferior infarct, age indeterminate) - 12/26/2017 Stress Tests:: MPI (Lexiscan myoview: Negative for ischemia.) - 06/19/2019 MPI (ACST: Focal lateral apical ischemia.) - 08/13/2006 CKD (chronic kidney disease) stage 5, GFR less than 15 ml/min Closed fracture of superior ramus of left pubis (08/11/19) Closed sacral fracture (~08/11/19) Dementia Depression Diastolic dysfunction Echo June 2019 Elbow fracture, right GERD (gastroesophageal reflux disease) Hypertension, essential Overactive bladder Pelvis ilium fracture (08/11/19) Schizoaffective disorder TIA (transient ischemic attack) Tibial fracture Type 2 diabetes mellitus with diabetic neuropathy Uses wheelchair Surgical History Surgical History (Updated 01/25/20 @ 21:15 by Fabienne Marie DO) Ankle fracture, right With ORIF 1975 History of hysterectomy Family History Family History (Updated 01/25/20 @ 21:35 by Fabienne Marie DO) Mother Cerebrovascular accident Father Hypertension Social History Social History (Updated 01/26/20 @ 00:18 by Fabienne Marie DO) Social History: Primary care physician: Dr. Suellen Mo
[2020-01-25] MEDS: EPOETIN ALFA 10,000 UNITS/ML VIAL 10000 UNITS SUB-Q (22:42)
[2020-01-25] MEDS: FOLIC ACID 1 MG TABLET PO (22:43)
[2020-01-25] MEDS: OMEGA 3 POLYUNSAT FATTY ACIDS 1 GM CAP PO (22:43)
[2020-01-25] MEDS: QUEtiapine FUMARATE 100 MG TABLET 300 MG PO (22:43)
[2020-01-25] MEDS: hydrALAZINE HCL 50 MG TABLET 100 MG PO (22:43)
[2020-01-25] MEDS: MELATONIN 5 MG TABLET 10 MG PO (22:43)
[2020-01-25] MEDS: INSULIN DETEMIR 100 UNITS/ML 10 UNITS SUB-Q (22:44)
[2020-01-25] MEDS: TAMSULOSIN HCL 0.4 MG CAPSULE PO (22:44)
[2020-01-25] MEDS: DICYCLOMINE HCL 10 MG CAPSULE PO (22:44)
[2020-01-25] MEDS: ATORVASTATIN 10 MG TABLET PO (22:44)
[2020-01-25] MEDS: busPIRone HCL 10 MG TABLET PO (22:44)
[2020-01-25] MEDS: TICAGRELOR 60 MG TABLET PO (22:44)
[2020-01-25 23:19] LABS: Glucose Point of Care 122 (65-105)
[2020-01-26] VITALS (8 sets, daily range): BP systolic 108–138; BP diastolic 41–57; PULSE 75–95; RESP 16–20; TEMP 37.1–37.8; O2SAT 92–96
[2020-01-26] MEDS: LORAZEPAM 0.5 MG TABLET PO ×5 (00:30→21:14)
[2020-01-26] MEDS: ACETAMINOPHEN 500 MG TABLET 1000 MG PO (06:38)
[2020-01-26 07:44] LABS: Albumin Level 3.6 g/dL (3.5-5.1); Blood Urea Nitrogen 96 mg/dL (7-17); Calcium 9.5 mg/dL (8.4-10.2); Carbon Dioxide 19 mmol/L (22-30); Chloride 109 mmol/L (98-107); Estimated CRCL calculation 8 ml/min; Estimated Glomerular Filt Rate 8; Glucose 113 mg/dL (65-105); Phosphorus 4.1 mg/dL (2.5-4.5); Potassium 3.9 mmol/L (3.4-5.0); Sodium 141 mmol/L (137-145)
[2020-01-26 08:05] LABS: Basophils Percent Auto 0.2 % (0.2-1.2); Hematocrit 23.8 % (37.0-47.0); Hemoglobin 7.4 g/dL (12.0-15.0); Immature Granulocyte Absolute 0.05 K/mm3 (0.00-0.031); Mean Corpuscular HGB Conc 31.1 g/dl (32-36); Mean Corpuscular Hemoglobin 30.3 pg (26-34); Mean Corpuscular Volume 97.5 fl (80-100); Monocytes Absolute Auto 0.5 K/mm3 (0.1-0.6); Monocytes Percent Auto 10.4 % (2.6-8.5); Neutrophils Absolute Auto 3.9 K/mm3 (1.3-6.7); Neutrophils Percent Auto 78.4 % (45.5-73.1); Platelet Count Result 101 k/mm3 (150-375); Red Blood Count 2.44 M/mm3 (4.2-5.4); Red Cell Distribution Width 12.4 % (11.5-14.5)
[2020-01-26] MEDS: carvediloL 25 MG TABLET PO ×2 (08:57→21:09)
[2020-01-26] MEDS: busPIRone HCL 10 MG TABLET PO ×3 (08:58→17:19)
[2020-01-26] MEDS: CYANOCOBALAMIN 1,000 MCG TABLET 1000 MCG PO (08:58)
[2020-01-26] MEDS: FERROUS SULFATE 324 MG TABLET PO ×2 (08:58→17:19)
[2020-01-26] MEDS: TICAGRELOR 60 MG TABLET PO ×2 (08:59→21:10)
[2020-01-26] MEDS: OMEGA 3 POLYUNSAT FATTY ACIDS 1 GM CAP PO ×2 (08:59→17:19)
[2020-01-26] MEDS: MAGNESIUM OXIDE 400 MG TABLET PO (08:59)
[2020-01-26] MEDS: PANTOPRAZOLE SOD SESQUIHYDRATE 20 MG TAB PO (08:59)
[2020-01-26] MEDS: DICYCLOMINE HCL 10 MG CAPSULE PO ×3 (09:00→17:19)
[2020-01-26] MEDS: FOLIC ACID 1 MG TABLET PO ×2 (09:00→17:19)
[2020-01-26] MEDS: ALBUTEROL SULFATE (*SP) AEROSOL 1 PUFF 6 PUFF INHALATION ×4 (09:10→19:35)
[2020-01-26 09:18] LABS: Glucose Point of Care 136 (65-105)
[2020-01-26 12:42] LABS: Glucose Point of Care 114 (65-105)
[2020-01-26 14:32] LABS: SARS-CoV-2 RNA PCR Positive
[2020-01-26 15:02] LABS: Procalcitonin 0.44 ng/mL (<0.10)
[2020-01-26 17:21] LABS: Glucose Point of Care 92 (65-105)
[2020-01-26] MEDS: GUAIFENESIN 200 MG/10 ML UDC 400 MG PO (17:22)
--- NOTE | 2020-01-26 18:13 | PM.IMPN ---
Progress Note: A&P Assessment and Plan (1) COVID-19: Code(s): U07.1 - COVID-19 Status: Acute Assessment and Plan: Positive results today. Still satting in mid 90s on RA. Intermittent fevers Will continue supportive care with Tylenol, mucinex, and scheduled inhalers Supplemental O2 as needed D/c antibiotics bacterial coinfection unlikely at this point; Ur antigens pending Monitor closely Will do CXR tomorrow for further monitoring Monitor daily labs as well (2) Pneumonia: Qualifiers: Laterality: bilateral Lung location: unspecified part of lung Pneumonia type: due to unspecified organism Qualified Code(s): J18.9 - Pneumonia, unspecified organism Code(s): J18.9 - Pneumonia, unspecified organism Status: Acute Assessment and Plan: Patient Positive for COVID. Bacterial coinfection unlikely. The patient had been on Rocephin and azithromycin at the group home; will d/c this today Will continue albuterol and Spiriva inhalers Further care as above (3) Hypertension, essential: Code(s): I10 - Essential (primary) hypertension Status: Acute Assessment and Plan: BP 130s sys today Will continue Coreg at this time Continue to hold Imdur, hydralazine for now; resume when appropriate, likely tomorrow if still stable Monitor (4) Anemia in chronic kidney disease: Qualifiers: Chronic kidney disease stage: stage 5, not on chronic dialysis Qualified Code(s): N18.5 - Chronic kidney disease, stage 5; D63.1 - Anemia in chronic kidney disease Code(s): N18.9 - Chronic kidney disease, unspecified; D63.1 - Anemia in chronic kidney disease Status: Acute Assessment and Plan: Hgb 7.4 today; stable Nephrology has been consulted and appreciate input Procrit every other day has been ordered Monitor H&H daily; transfuse as needed The patient's iron supplement is non formulary; will continue with substitute ferrous sulfate. (5) CKD (chronic kidney disease) stage 5, GFR less than 15 ml/min: Code(s): N18.5 - Chronic kidney disease, stage 5 Status: Acute Assessment and Plan: Nephrology has been consulted and appreciate input. Cr 5.50 today; stable Further rec per Nephrology appreciated Monitor BMP daily Subjective Date/time seen: 01/26/20 18:13 Interval history: Patient is a 69 yo F with history of chronic kidney disease stage 5, hypertension, coronary artery disease and diabetes who is here for treatment of PNA with recent results showing COVID positive. Patient is A&Ox4 for me today, but does appear to get confused at times, requiring me to ask her questions multiple times before she returns with an answer. Patient may be unreliable for history/ROS. At any rate, patient states she has some fevers/chills, cough, and vague abdominal pain. Denies myalgias/arthralgias, headaches, dizziness, lightheadedness, cp/palpitations, sob, n/v/d/c, dysuria, calf pain/swelling. Review of Systems Review of Systems: All systems reviewed & are unremarkable except as noted in HPI and below Exam Narrative: Exam Narrative: Patient is lying in semi-smith's position in bed at time of visit Const: General: cooperative, comfortable, no acute distress, well developed, alert and ill appearing acutely Nutritional Appearance: well nourished Orientation/consciousness: patient oriented x3 HENMT: Head: normocephalic General nose exam: Normal nares present Face and sinus: face symmetric Mouth: Yes moist mucous membranes Eyes: General: appearance normal, both eyes and all related structures EOM: EOMs intact bilaterally Neck: Neck: trachea midline and supple Resp: Effort & Inspection: normal respiratory effort Auscultation: rhonchi (scattered) Cardio:
[2020-01-26] MEDS: ATORVASTATIN 10 MG TABLET PO (21:09)
[2020-01-26] MEDS: MELATONIN 5 MG TABLET 10 MG PO (21:09)
[2020-01-26] MEDS: INSULIN DETEMIR 100 UNITS/ML 10 UNITS SUB-Q (21:10)
[2020-01-26] MEDS: TAMSULOSIN HCL 0.4 MG CAPSULE PO (21:10)
[2020-01-26] MEDS: QUEtiapine FUMARATE 100 MG TABLET 300 MG PO (21:10)
[2020-01-26 22:14] LABS: Glucose Point of Care 101 (65-105)
[2020-01-27] VITALS (8 sets, daily range): BP systolic 109–133; BP diastolic 50–74; PULSE 73–98; RESP 18–20; TEMP 36.9–38.8; O2SAT 92–94
[2020-01-27 06:37] LABS: Hematocrit 22.7 % (37.0-47.0); Hemoglobin 7.3 g/dL (12.0-15.0); Immature Granulocyte Absolute 0.06 K/mm3 (0.00-0.031); Immature Granulocyte Percent A 1.5 % (0-0.5); Lymphocytes Absolute Auto 0.49 K/mm3 (0.9-3.2); Lymphocytes Percent Auto 11.9 % (18.3-44.2); Mean Corpuscular HGB Conc 32.2 g/dl (32-36); Mean Corpuscular Hemoglobin 30.8 pg (26-34); Mean Corpuscular Volume 95.8 fl (80-100); Mean Platelet Volume 11.1 fl (7.4-10.4); Monocytes Absolute Auto 0.5 K/mm3 (0.1-0.6); Monocytes Percent Auto 11.4 % (2.6-8.5); Neutrophils Absolute Auto 3.1 K/mm3 (1.3-6.7); Neutrophils Percent Auto 75.2 % (45.5-73.1); Platelet Count Result 110 k/mm3 (150-375); Red Blood Count 2.37 M/mm3 (4.2-5.4); Red Cell Distribution Width 12.5 % (11.5-14.5); White Blood Count 4.1 K/mm3 (4.5-10.0)
[2020-01-27 06:45] LABS: INR 1.2
[2020-01-27 06:50] LABS: Alanine Aminotransferase 30 U/L (4-35); Albumin Level 3.6 g/dL (3.5-5.1); Alkaline Phosphatase 63 U/L (38-126); Aspartate Amino Transferase 52 U/L (14-36); Bilirubin,Total 0.4 mg/dL (0.2-1.3); Blood Urea Nitrogen 104 mg/dL (7-17); CRP 8.9 mg/dL (<1.0); Calcium 9.5 mg/dL (8.4-10.2); Carbon Dioxide 20 mmol/L (22-30); Chloride 108 mmol/L (98-107); Creatine Kinase 199 U/L (30-135); Estimated CRCL calculation 7 ml/min; Estimated Glomerular Filt Rate 7; Glucose 92 mg/dL (65-105); Lactate Dehydrogenase 572 U/L (313-618); Magnesium 2.3 mg/dL (1.6-2.3); Potassium 4.1 mmol/L (3.4-5.0); Sodium 141 mmol/L (137-145)
[2020-01-27 07:11] LABS: Lactic Acid 0.5 mmol/L (0.7-2.1)
[2020-01-27] MEDS: ALBUTEROL SULFATE (*SP) AEROSOL 1 PUFF 6 PUFF INHALATION ×3 (08:29→16:51)
[2020-01-27] MEDS: calcitrioL 0.25 MCG CAPSULE PO (08:48)
[2020-01-27] MEDS: FERROUS SULFATE 324 MG TABLET PO ×2 (08:49→16:54)
[2020-01-27] MEDS: LORAZEPAM 0.5 MG TABLET PO ×4 (08:49→20:38)
[2020-01-27] MEDS: carvediloL 25 MG TABLET PO (08:49)
[2020-01-27] MEDS: PANTOPRAZOLE SOD SESQUIHYDRATE 20 MG TAB PO (08:49)
[2020-01-27] MEDS: FOLIC ACID 1 MG TABLET PO ×2 (08:50→16:54)
[2020-01-27] MEDS: DICYCLOMINE HCL 10 MG CAPSULE PO ×3 (08:50→16:53)
[2020-01-27] MEDS: OMEGA 3 POLYUNSAT FATTY ACIDS 1 GM CAP PO ×2 (08:50→16:52)
[2020-01-27] MEDS: TICAGRELOR 60 MG TABLET PO ×2 (08:50→20:39)
[2020-01-27] MEDS: CYANOCOBALAMIN 1,000 MCG TABLET 1000 MCG PO (08:50)
[2020-01-27] MEDS: MAGNESIUM OXIDE 400 MG TABLET PO (08:50)
[2020-01-27] MEDS: busPIRone HCL 10 MG TABLET PO ×3 (08:50→16:53)
[2020-01-27 09:09] LABS: Glucose Point of Care 88 (65-105)
[2020-01-27] MEDS: GUAIFENESIN 200 MG/10 ML UDC 400 MG PO (13:01)
[2020-01-27 13:38] LABS: Glucose Point of Care 93 (65-105)
--- NOTE | 2020-01-27 14:43 | PM.PNNEP ---
Progress Note: A&P Assessment and Plan (1) CKD (chronic kidney disease) stage 5, GFR less than 15 ml/min: Code(s): N18.5 - Chronic kidney disease, stage 5 Status: Acute Assessment and Plan: The patient has chronic kidney disease. This is due to diabetes and hypertension. Baseline creatinine is anywhere from 5.5 to 6.5 Her creatinine is 5.5. (2) Pneumonia: Qualifiers: Laterality: bilateral Lung location: unspecified part of lung Pneumonia type: due to unspecified organism Qualified Code(s): J18.9 - Pneumonia, unspecified organism Code(s): J18.9 - Pneumonia, unspecified organism Status: Acute Assessment and Plan: Bilateral infiltrates. She is not on oxygen. She does have a bit of a cough. COVID is positive. Continue supportive care. (3) Anemia associated with stage 4 chronic renal failure: Code(s): N18.4 - Chronic kidney disease, stage 4 (severe); D63.1 - Anemia in chronic kidney disease Status: Resolved Assessment and Plan: Hemoglobin is a little better at 7.3 On EPO (4) CAD (coronary artery disease): Code(s): I25.10 - Atherosclerotic heart disease of [place] coronary artery without angina pectoris Status: Inactive Assessment and Plan: No chest pain. (5) Type 2 diabetes mellitus with diabetic neuropathy: Code(s): E11.40 - Type 2 diabetes mellitus with diabetic neuropathy, unspecified Status: Inactive Assessment and Plan: She is on Accu-Cheks and sliding-scale insulin Subjective Date/time seen: 01/27/20 14:43 Interval history: Patient is alert. She has a little bit of a cough. No chest pain or shortness of Breath Review of Systems Cardiovascular: Cardiovascular: Reports no additional cardiovascular complaints Respiratory: Respiratory: Reports no additional respiratory complaints Gastrointestinal: Gastrointestinal: Reports no additional gastrointestinal complaints Genitourinary: Genitourinary: Reports no additional female genitourinary complaints Exam Narrative: Exam Narrative: Well developed well-nourished in no acute distress Lungs clear Heart regular without rub Abdomen bowel sounds positive soft nontender Extremities no edema Skin no rash Objective Data Vital Signs Vital Signs: Vital Signs - 24 hr 01/26/20 17:35 01/26/20 21:09 01/26/20 21:51 Temperature 37.7 C H 37.2 C Pulse Rate 75 84 85 Respiratory Rate 16 20 Blood Pressure 138/57 L 126/41 L Pulse Oximetry 94 96 01/27/20 02:00 01/27/20 06:00 01/27/20 08:49 Temperature 37.1 C 36.9 C Pulse Rate 75 87 87 Respiratory Rate 20 20 Blood Pressure 109/56 L 133/52 L Pulse Oximetry 94 92 Intake/Output Intake/Output: Intake & Output 01/24/20 01/25/20 01/26/20 01/27/20 23:59 23:59 23:59 23:59 Intake Total 1000 1330 200 Output Total 200 Balance 1000 1330 0 Meds/Results Medications: Active Medications Generic Name Dose Route Start Last Admin Trade Name Freq PRN Reason Stop Dose Admin Acetaminophen 1,000 mg 01/25/20 21:42 01/26/20 06:38 Tylenol Tablet PO 1,000 mg Q6H PRN Administration Pain 4-6 and fever Al Hydrox/Mg Hydrox/Simethicone 30 ml 01/25/20 21:42 Mylanta PO Q6H PRN Indigestion Albuterol 6 puff 01/26/20 08:00 01/27/20 12:17 Proventil Hfa INHALATION 6 puff QIDRT JIM Administration Artificial Tears 1 drop 01/25/20 22:00 01/27/20 08:51 Artificial Tears EACH EYE 1 drop BID JIM Administration Atorvastatin Calcium 10 mg 01/25/20 21:55 01/26/20 21:09 Lipitor PO 10 mg HS JIM Administration Buspirone HCl 10 mg 01/25/20 21:55 01/27/20 13:00 Buspar PO 10 mg TID JIM Administration Calcitriol 0.25 mcg 01/27/20 08:00 01/27/20 08:48 Rocaltrol PO 0.25 mcg [id number]@0800 JIM Administration Carvedilol 25 mg 01/26/20 09:00 01/27/20 08:49 Coreg PO 25 mg Q12HR JIM Administration Cyanocobala
--- NOTE | 2020-01-27 15:19 | PM.DS ---
DS: Diagnosis Admitting Diagnosis Admitting Diagnosis: Pneumonia, unspecified organism Discharge Diagnosis (1) COVID-19: Code(s): U07.1 - COVID-19 Status: Acute Assessment and Plan: Positive on testing this stay. Still satting in low-mid 90s on RA. Intermittent fevers, but none since yesterday evening Discharge back to [facility] care Will rec to continue supportive care with Tylenol, mucinex, and scheduled inhalers D/c antibiotics bacterial coinfection unlikely at this point; Ur antigens pending F/u with DC physician CXR deferred as patient had no change in respiratory status (2) Pneumonia: Qualifiers: Laterality: bilateral Lung location: unspecified part of lung Pneumonia type: due to unspecified organism Qualified Code(s): J18.9 - Pneumonia, unspecified organism Code(s): J18.9 - Pneumonia, unspecified organism Status: Acute Assessment and Plan: Patient Positive for COVID. Bacterial coinfection unlikely. The patient had been on Rocephin and azithromycin at the snf; no antibiotics at discharge Will continue albuterol and Spiriva inhalers or home medications Recommend refrain from nebulized treatments Further care as above (3) Hypertension, essential: Code(s): I10 - Essential (primary) hypertension Status: Acute Assessment and Plan: BP 130s sys today Will continue Coreg at this time Will resume Imdur at discharge Rec holding hydralazine at discharge until BP improve Monitor (4) Anemia in chronic kidney disease: Qualifiers: Chronic kidney disease stage: stage 5, not on chronic dialysis Qualified Code(s): N18.5 - Chronic kidney disease, stage 5; D63.1 - Anemia in chronic kidney disease Code(s): N18.9 - Chronic kidney disease, unspecified; D63.1 - Anemia in chronic kidney disease Status: Acute Assessment and Plan: Hgb 7.3 today; stable Nephrology has been consulted and appreciate input Procrit every other day has been ordered Resume iron at discharge (5) CKD (chronic kidney disease) stage 5, GFR less than 15 ml/min: Code(s): N18.5 - Chronic kidney disease, stage 5 Status: Acute Assessment and Plan: Nephrology has been consulted and appreciate input. Cr 6.10 today; stable Further rec per Nephrology appreciated DS: Summary Hospital Course Reason for hospitalization: COVID Hospital Course: Patient is a 69 yo F with a past medical history of chronic kidney disease stage 5, hypertension, coronary artery disease and diabetes who presented to the ER from [facility] via EMS on 01/24 due to progressive weakness and myalgias over the previous couple of days prior to presentation. Patient was diagnosed with pneumonia the day prior after developing productive cough and fever in the NH. She had not had any oxygen requirement but had increased shortness of breath. Pulse ox in the ER was 95% on RA. Please see H&P for further details. Presenting VS: Temp Pulse Resp BP Pulse Ox 98.6 F 74 18 120/54 L 95 01/25/20 10:20 01/25/20 10:20 01/25/20 10:20 01/25/20 10:20 01/25/20 10:20 Presenting Pertinent labs: WBC 7.8k, H&H 7.2/23.0, MCV 98.7, BUN 103, Cr 5.50, ferritin 693, AST 42, CRP 14.9, BNP 1040, procalcitonin 0.44. COVID positive. ABG pO2 61.4, pHCO3 20.4, O2 sat 90.9 on RA. CBC, chemistries, ABG, UA, otherwise grossly unremarkable Micro: Group A strep culture negative. BC negative to date x2 Imaging: Chest X-Ray 01/25/20 11:21 IMPRESSION: Bilateral infiltrates, left greater than right ECG: Interpretive Statements SINUS RHYTHM NORMAL ECG Patient was admitted to the hospitalist service for further evaluation for suspected COVID infection; Nephrology was consult
[2020-01-27] MEDS: ACETAMINOPHEN 500 MG TABLET 1000 MG PO (16:54)
[2020-01-27] MEDS: EPOETIN ALFA 10,000 UNITS/ML VIAL 10000 UNITS SUB-Q (17:30)
[2020-01-27 17:33] LABS: Glucose Point of Care 107 (65-105)
[2020-01-27] MEDS: QUEtiapine FUMARATE 100 MG TABLET 300 MG PO (20:37)
[2020-01-27] MEDS: MELATONIN 5 MG TABLET 10 MG PO (20:38)
[2020-01-27] MEDS: ATORVASTATIN 10 MG TABLET PO (20:39)
[2020-01-27] MEDS: TAMSULOSIN HCL 0.4 MG CAPSULE PO (20:39)
[2020-01-27 21:45] LABS: Glucose Point of Care 87 (65-105)
== END 2020-01-27 23:40 | DRG 177 ==
LOC: ANHED 12:26 → ANH3MEDSUR 13:49
PROVIDERS: Internal Medicine Nephrology; Physician Assistant; Admitting Provider Family Medicine; Emergency Provider Emergency Medicine; PCP Family Medicine; Visit Provider Hospitalist
DX: U07.1 COVID-19 (principal); J12.89 Other viral pneumonia; N18.5 Chronic kidney disease, stage 5; I12.0 Hypertensive chronic kidney disease with stage 5 chronic kidney disease or end stage renal disease; I25.10 Atherosclerotic heart disease of native coronary artery without angina pectoris; E11.22 Type 2 diabetes mellitus with diabetic chronic kidney disease; D63.1 Anemia in chronic kidney disease; M17.10 Unilateral primary osteoarthritis, unspecified knee; F31.9 Bipolar disorder, unspecified; Z95.5 Presence of coronary angioplasty implant and graft; F03.90 Unspecified dementia, unspecified severity, without behavioral disturbance, psychotic disturbance, mood disturbance, and anxiety; F41.8 Other specified anxiety disorders; E11.40 Type 2 diabetes mellitus with diabetic neuropathy, unspecified; F25.9 Schizoaffective disorder, unspecified; N32.81 Overactive bladder; Z86.73 Personal history of transient ischemic attack (TIA), and cerebral infarction without residual deficits; Z99.3 Dependence on wheelchair; Z90.710 Acquired absence of both cervix and uterus
CPT/HCPCS: 36415; 36600; 71045; 80053; 80069; 81001; 82375; 82550; 82728; 82805; 83050; 83540; 83550; 83605; 83615; 83735; 83880; 84145; 84484; 85025; 85610; 85730; 86140; 86850; 86900; 86901; 87040; 87081; 87635; 87804; 87880; 93005; 94640; 96361; 96374; 96375; 99285; A9270; J0456; J0696; J1815; J7040; Q4081; U0003

== ENCOUNTER 2020-01-29 20:20 | Emergency (ER) | payer MEDICARE, MEDICAID, SELFPAY ==
--- NOTE | ~2020-01-29 | CT_ITS ---
EXAMINATION: CT brain wo con INDICATION: Confusion and fever COMPARISON: 08/11/2019 TECHNIQUE: Standard unenhanced head CT. The dose-length product (DLP) was 605.33 mGy-cm. The mA was a djusted according to patient size. Iterative reconstruction technique was employed. FINDINGS: There is no acute intraparenchymal hemorrhage. No evidence of mass lesion. No evidence of a cute infarction. There is mild periventricular and subcortical hypodensity probably related to small vessel ischemic disease. There is mild prominence of the sulci and ventricles related to cerebral atr ophy. Intracranial calcified cerebral atherosclerosis is noted. There are no extra-axial collections. There is no mass effect or midline shift. The orbits and soft tissues are unremarkable. There is mi ld mucosal thickening of the paranasal sinuses. IMPRESSION: 1. No acute intracranial abnormality. 2. Age related findings. Reviewed, dictated and finalized at location A.
--- NOTE | ~2020-01-29 | XR_ITS ---
EXAMINATION: XR chest 1V portable INDICATION: Shortness of breath, COVID-19 TECHNIQUE: Portable AP chest at 2138 hours COMPARISON: 01/25/2020 FINDINGS: Airspace opacities in the left midlung zone persist with interval worsening. There are also worsening airspace opacities of the right mid and upper lung zones. There is no pleural effusion or pneumothorax. The cardiomediastinal silhouette is normal. IMPRESSION: 1. Worsening bilateral airspace opacities, consistent with pneumonia. Reviewed, dictated and finalized at location A.
[2020-01-29 20:46] VITALS: BP 105/49; PULSE 78; RESP 20; TEMP 37.5; O2SAT 97
[2020-01-29 20:53] VITALS: RESP 20; O2SAT 97
--- NOTE | 2020-01-29 20:58 | ED.AMS ---
HPI - Altered Mental Status General Chief Complaint: Altered Mental Status Stated Complaint: ams Time Seen by Provider: 01/29/20 20:58 Source: patient, RN notes reviewed and old records reviewed Mode of arrival: EMS Limitations: dementia History of Present Illness HPI narrative: Patient is a 69-year-old female who presents to the emergency department from local retirement with report of altered mental status. Patient was just admitted to this hospital 4 days ago and discharged 2 days ago with COVID-19. Reportedly patient found to be altered. Patient does have a known history of dementia. Patient's only complaint to me is aches and pains in her joints and back. She says she occasionally feels short of breath. MD complaint: altered mental status Associated symptoms: cough, shortness of breath and other (Diffuse aches and pains) Related Data Home Medications Medication Instructions Recorded Confirmed Benadryl Itch Stopping 1 applic TOPICAL BID PRN 08/11/19 01/25/20 Brilinta 60 mg PO Q12H 08/11/19 01/25/20 Latuda 60 mg PO DAILY 08/11/19 01/25/20 Levemir U-100 Insulin 15 unit SUBCUT HS 08/11/19 01/25/20 Muscle Rub 1 applic TOPICAL Q8H PRN 08/11/19 01/25/20 Poly-Iron 150 Forte 1 cap PO BID 08/11/19 01/25/20 alum-mag hydroxide-simeth [Maalox 30 ml PO Q6H PRN 08/11/19 01/25/20 Advanced] atorvastatin 10 mg PO HS 08/11/19 01/25/20 buspirone 10 mg PO TID 08/11/19 01/25/20 calcitriol See Rx Instructions .ROUTE .COMPLEX 08/11/19 01/25/20 carvedilol 25 mg PO BID 08/11/19 01/25/20 cyanocobalamin (vitamin B-12) 1,000 mcg PO DAILY 08/11/19 01/25/20 dicyclomine 10 mg PO TID 08/11/19 01/25/20 ergocalciferol (vitamin D2) 50,000 unit PO WEEKLY 08/11/19 01/25/20 escitalopram oxalate [Lexapro] 10 mg PO DAILY 08/11/19 01/25/20 folic acid 1 mg PO BID 08/11/19 01/25/20 guaifenesin 400 mg PO Q6H PRN 08/11/19 01/25/20 hydralazine 100 mg PO TID 08/11/19 01/25/20 isosorbide mononitrate 60 mg PO DAILY 08/11/19 01/25/20 lidocaine HCl [Aspercreme 1 applic TOPICAL DIRECTED PRN 08/11/19 01/25/20 (lidocaine)] magnesium oxide 400 mg PO DAILY 08/11/19 01/25/20 melatonin 10 mg PO HS 08/11/19 01/25/20 nitroglycerin 0.4 mg SUBLINGUAL Q5-15M PRN 08/11/19 01/25/20 omega 4-zkk-mgl-fish oil [Fish Oil] 2 cap PO BID 08/11/19 01/25/20 ondansetron HCl [Zofran] 4 mg PO Q8H PRN 08/11/19 01/25/20 oxybutynin chloride 15 mg PO BID 08/11/19 01/25/20 pantoprazole 20 mg PO QAM 08/11/19 01/25/20 polyvinyl alcohol [Artificial 1 drp OPHTHALMIC (EYE) BID 08/11/19 01/25/20 Tears (polyvin alc)] quetiapine [Seroquel] 300 mg PO HS 08/11/19 01/25/20 sodium chloride [Saline Nasal] 2 spray INTRANASAL Q2H PRN 08/11/19 01/25/20 Levemir U-100 Insulin 5 unit SUBCUT DAILY 01/25/20 01/25/20 tamsulosin [Flomax] 0.4 mg PO HS 01/25/20 01/25/20 Allergies Allergy/AdvReac Type Severity Reaction Status Date / Time iohexol Allergy Unknown Unknown Verified 11/20/19 13:44 [From CONTRAST - CT, XRAY] methylprednisolone Allergy Unknown Verified 11/20/19 13:44 [From Medrol] Penicillins Allergy Unknown Verified 11/20/19 13:44 trazodone Allergy Unknown Verified 11/20/19 13:44 propoxyphene AdvReac Severe Confusion, Verified 01/25/20 21:18 LOOSES CONTROL hydrocodone AdvReac Mild Confusion Verified 01/25/20 21:17 Review of Systems Review of Systems: All systems reviewed & are unremarkable except as noted in HPI and below Respiratory: Respiratory: Reports cough and Reports dyspnea Gastrointestinal: Gastrointestinal: Denies abdominal pain, Denies nausea and Denies vomiting Musculoskeletal: Musculoskeletal: Reports myalgias PMFSH Past Medical History Medical History Anemia in chronic kidney disease Anxiety Arthritis of knee Bipolar disorder C. 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
--- NOTE | 2020-01-29 21:10 | ECG_ITS ---
Measurements Intervals [place] Rate: 80 P: 56 VA: 180 QRS: -25 QRSD: 118 T: 31 QT: 410 QTc: 475 Interpretive Statements SINUS RHYTHM INTRAVENTRICULAR CONDUCTION DELAY BASELINE ARTIFACT- V6 BORDERLINE ECG Electronically Signed On 01-30-2020 8:51:24 CDT by Rhett Roldan D.O.
[2020-01-29 21:32] LABS: Basophils Percent Auto 0.2 % (0.2-1.2); Immature Granulocyte Percent A 6.4 % (0-0.5); Lymphocytes Absolute Auto 0.71 K/mm3 (0.9-3.2); Mean Corpuscular HGB Conc 30.9 g/dl (32-36); Mean Corpuscular Hemoglobin 30.5 pg (26-34); Mean Corpuscular Volume 98.7 fl (80-100); Mean Platelet Volume 11.1 fl (7.4-10.4); Monocytes Absolute Auto 0.3 K/mm3 (0.1-0.6); Monocytes Percent Auto 7.2 % (2.6-8.5); Neutrophils Absolute Auto 3.4 K/mm3 (1.3-6.7); Neutrophils Percent Auto 71.2 % (45.5-73.1); Platelet Count Result 159 k/mm3 (150-375); Red Blood Count 2.23 M/mm3 (4.2-5.4); Red Cell Distribution Width 12.8 % (11.5-14.5); White Blood Count 4.7 K/mm3 (4.5-10.0)
[2020-01-29 21:52] LABS: Alanine Aminotransferase 35 U/L (4-35); Albumin Level 3.4 g/dL (3.5-5.1); Alkaline Phosphatase 59 U/L (38-126); Aspartate Amino Transferase 63 U/L (14-36); Bilirubin,Total 0.5 mg/dL (0.2-1.3); Calcium 9.8 mg/dL (8.4-10.2); Carbon Dioxide 20 mmol/L (22-30); Chloride 113 mmol/L (98-107); Estimated Glomerular Filt Rate 6; Glucose 88 mg/dL (65-105); Sodium 144 mmol/L (137-145)
[2020-01-29 21:53] LABS: Hemoglobin 6.8 g/dL (12.0-15.0)
[2020-01-29 21:54] LABS: Ovalocytes 1+ (NORMAL); Platelet Estimate Adequate (Adequate)
[2020-01-29 22:17] LABS: Blood Urea Nitrogen 126 mg/dL (7-17)
[2020-01-29 22:59] VITALS: BP 116/71; PULSE 82; RESP 20; O2SAT 97
[2020-01-29 23:28] LABS: Add Urine Microscopic? YES; Appearance Urine Clear (Clear); Bacteria Urine Trace /hpf; Bilirubin Urine Negative (Negative); Blood Urine Negative (Negative); Color Urine Yellow (Yellow); Glucose Urine UA Negative (Negative); Ketones Urine Negative (Negative); Leukocyte Esterase Ur Negative LEU/UL (Negative); Nitrate Urine Negative (Negative); Protein Urine 1+ mg/dL (Negative); RBC Urine 0-2 /hpf (0-2); Specific Grav Ur 1.014 (1.001-1.035); Urobilinogen Urine Negative mg/dL (<2.0); WBC Urine 0-3 /hpf
--- NOTE | 2020-01-29 23:47 | PC.NURSE ---
Page, patient's nurse from the [facility] calls to give report.
[2020-01-30 00:12] VITALS: BP 123/55; PULSE 85; RESP 18; O2SAT 99
[2020-01-30 01:59] VITALS: BP 113/66; PULSE 81; RESP 19; TEMP 37.2; O2SAT 99
[2020-01-30 02:23] VITALS: BP 120/55; PULSE 85; RESP 19; O2SAT 96
--- NOTE | 2020-01-30 02:35 | PC.NURSE ---
0050 - Called [facility] to transport patient. ETA 0230 0055 - Called [facility] to request transport. [facility] declined. 0227 - Called [facility] for ETA update. ETA 0430 0227 - Called [facility] to request transport. [facility] declined.
[2020-01-30 03:56] VITALS: BP 131/65; PULSE 85; RESP 20; TEMP 37.2; O2SAT 95
--- NOTE | 2020-01-30 05:04 | PC.NURSE ---
Patient's niece and Shabana MONTANO calls to get patient update.
--- NOTE | 2020-01-30 05:30 | PC.NURSE ---
Called [facility] at 0357to update ETA. ETA is 0630 Called [facility] at 0529 to update ETA. ETA is 20 minutes.
[2020-01-30 05:36] VITALS: BP 132/60; PULSE 86; RESP 20; O2SAT 96
--- NOTE | 2020-01-30 06:04 | PC.NURSE ---
Called [facility] for ETA update. ETA is [id number] Called [facility] to request transport. [facility] not available until 9am
[2020-01-30 06:37] VITALS: BP 138/55; PULSE 90; RESP 20; TEMP 37.2; O2SAT 98
--- NOTE | 2020-01-30 06:44 | PC.NURSE ---
[facility] here.
== END 2020-01-30 06:57 ==
PROVIDERS: Emergency Provider Emergency Medicine; PCP Family Medicine
DX: U07.1 COVID-19 (principal); J12.89 Other viral pneumonia; I12.0 Hypertensive chronic kidney disease with stage 5 chronic kidney disease or end stage renal disease; N18.5 Chronic kidney disease, stage 5; E11.22 Type 2 diabetes mellitus with diabetic chronic kidney disease; F03.90 Unspecified dementia, unspecified severity, without behavioral disturbance, psychotic disturbance, mood disturbance, and anxiety; I25.10 Atherosclerotic heart disease of native coronary artery without angina pectoris; D63.1 Anemia in chronic kidney disease; E11.42 Type 2 diabetes mellitus with diabetic polyneuropathy; M17.10 Unilateral primary osteoarthritis, unspecified knee; K21.9 Gastro-esophageal reflux disease without esophagitis; N32.81 Overactive bladder; Z86.73 Personal history of transient ischemic attack (TIA), and cerebral infarction without residual deficits; F31.9 Bipolar disorder, unspecified; F41.9 Anxiety disorder, unspecified
CPT/HCPCS: 36415; 51701; 70450; 71045; 80053; 81001; 85025; 93005; 96365; 96367; 99284; J0456; J0696

== ENCOUNTER 2020-05-18 21:20 | Emergency (ER) | payer MEDICARE, MEDICAID, SELFPAY ==
[2020-05-18 21:20] VITALS: BP 153/73; PULSE 89; RESP 18; TEMP 36.7; O2SAT 100
--- NOTE | 2020-05-18 21:43 | ED.WEAKNESS ---
HPI - Weakness General Chief complaint: Weakness Stated complaint: abn labs Time Seen by Provider: 05/18/20 21:21 History of Present Illness HPI Narrative: Sent in from [place] for [place]. She has anemia related to her CKD. On review of the chart her baseline hemoglobbin is about 7. She had labs drawn earlier today showing it at 6.4. She does report weakness slightly greater than usual. No dark or bloody stools. No SOB, dizziness. Related Data Home Medications Medication Instructions Recorded Confirmed Benadryl Itch Stopping 1 applic TOPICAL BID PRN 08/11/19 01/25/20 Brilinta 60 mg PO Q12H 08/11/19 01/25/20 Latuda 60 mg PO DAILY 08/11/19 01/25/20 Levemir U-100 Insulin 15 unit SUBCUT HS 08/11/19 01/25/20 Muscle Rub 1 applic TOPICAL Q8H PRN 08/11/19 01/25/20 Poly-Iron 150 Forte 1 cap PO BID 08/11/19 01/25/20 alum-mag hydroxide-simeth [Maalox 30 ml PO Q6H PRN 08/11/19 01/25/20 Advanced] atorvastatin 10 mg PO HS 08/11/19 01/25/20 buspirone 10 mg PO TID 08/11/19 01/25/20 calcitriol See Rx Instructions .ROUTE .COMPLEX 08/11/19 01/25/20 carvedilol 25 mg PO BID 08/11/19 01/25/20 cyanocobalamin (vitamin B-12) 1,000 mcg PO DAILY 08/11/19 01/25/20 dicyclomine 10 mg PO TID 08/11/19 01/25/20 ergocalciferol (vitamin D2) 50,000 unit PO WEEKLY 08/11/19 01/25/20 escitalopram oxalate [Lexapro] 10 mg PO DAILY 08/11/19 01/25/20 folic acid 1 mg PO BID 08/11/19 01/25/20 guaifenesin 400 mg PO Q6H PRN 08/11/19 01/25/20 hydralazine 100 mg PO TID 08/11/19 01/25/20 isosorbide mononitrate 60 mg PO DAILY 08/11/19 01/25/20 lidocaine HCl [Aspercreme 1 applic TOPICAL DIRECTED PRN 08/11/19 01/25/20 (lidocaine)] magnesium oxide 400 mg PO DAILY 08/11/19 01/25/20 melatonin 10 mg PO HS 08/11/19 01/25/20 nitroglycerin 0.4 mg SUBLINGUAL Q5-15M PRN 08/11/19 01/25/20 omega 8-hzc-yfm-fish oil [Fish Oil] 2 cap PO BID 08/11/19 01/25/20 ondansetron HCl [Zofran] 4 mg PO Q8H PRN 08/11/19 01/25/20 oxybutynin chloride 15 mg PO BID 08/11/19 01/25/20 pantoprazole 20 mg PO QAM 08/11/19 01/25/20 polyvinyl alcohol [Artificial 1 drp OPHTHALMIC (EYE) BID 08/11/19 01/25/20 Tears (polyvin alc)] quetiapine [Seroquel] 300 mg PO HS 08/11/19 01/25/20 sodium chloride [Saline Nasal] 2 spray INTRANASAL Q2H PRN 08/11/19 01/25/20 Levemir U-100 Insulin 5 unit SUBCUT DAILY 01/25/20 01/25/20 tamsulosin [Flomax] 0.4 mg PO HS 01/25/20 01/25/20 Allergies Allergy/AdvReac Type Severity Reaction Status Date / Time iohexol Allergy Unknown Unknown Verified 11/20/19 13:44 [From CONTRAST - CT, XRAY] methylprednisolone Allergy Unknown Verified 11/20/19 13:44 [From Medrol] Penicillins Allergy Unknown Verified 11/20/19 13:44 trazodone Allergy Unknown Verified 11/20/19 13:44 propoxyphene AdvReac Severe Confusion, Verified 01/25/20 21:18 LOOSES CONTROL hydrocodone AdvReac Mild Confusion Verified 01/25/20 21:17 Review of Systems Review of Systems: All systems reviewed & are unremarkable except as noted in HPI and below Constitutional: Constitutional: Denies fever(s) Cardiovascular: Cardiovascular: Denies chest pain Respiratory: Respiratory: Denies dyspnea Gastrointestinal: Gastrointestinal: Denies abdominal pain, Denies diarrhea, Denies nausea and Denies vomiting Genitourinary: Genitourinary: Denies hematuria and Denies dysuria Neurologic: Reports weakness PMFSH Past Medical History Medical History Anemia in chronic kidney disease Anxiety Arthritis of knee Bipolar disorder C. 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
[2020-05-18 22:01] LABS: Basophils Percent Auto 0.2 % (0.2-1.2); Eosinophils Absolute Auto 0.1 K/mm3 (0-0.3); Eosinophils Percent Auto 2.6 % (0-4.4); Hematocrit 22.2 % (37.0-47.0); Immature Granulocyte Absolute 0.02 K/mm3 (0.00-0.031); Immature Granulocyte Percent A 0.4 % (0-0.5); Lymphocytes Percent Auto 17.8 % (18.3-44.2); Mean Corpuscular HGB Conc 31.5 g/dl (32-36); Mean Corpuscular Volume 98.2 fl (80-100); Mean Platelet Volume 10.7 fl (7.4-10.4); Monocytes Absolute Auto 0.5 K/mm3 (0.1-0.6); Monocytes Percent Auto 9.3 % (2.6-8.5); Neutrophils Absolute Auto 3.5 K/mm3 (1.3-6.7); Neutrophils Percent Auto 69.7 % (45.5-73.1); Platelet Count Result 174 k/mm3 (150-375); Red Blood Count 2.26 M/mm3 (4.2-5.4); Red Cell Distribution Width 13.6 % (11.5-14.5); White Blood Count 5.1 K/mm3 (4.5-10.0)
[2020-05-18 22:11] LABS: Add Urine Microscopic? YES; Appearance Urine Clear (Clear); Bacteria Urine Trace /hpf; Bilirubin Urine Negative (Negative); Blood Urine Negative (Negative); Color Urine Straw (Yellow); Glucose Urine UA 1+ mg/dL (Negative); Ketones Urine Negative (Negative); Leukocyte Esterase Ur Negative LEU/UL (Negative); Mucus Urine Rare /lpf; Nitrate Urine Negative (Negative); Protein Urine Negative (Negative); RBC Urine 0-2 /hpf (0-2); Specific Grav Ur 1.008 (1.001-1.035); Squamous Epithelial Cell Urine Rare /hpf (Few); Urobilinogen Urine Negative mg/dL (<2.0); WBC Urine 0-3 /hpf
[2020-05-18 22:15] LABS: Alanine Aminotransferase 7 U/L (4-35); Albumin Level 3.7 g/dL (3.5-5.1); Alkaline Phosphatase 68 U/L (38-126); Anion Gap 9 mmol/L (8-16); Aspartate Amino Transferase 14 U/L (14-36); Bilirubin,Total < 0.1 mg/dL (0.2-1.3); Blood Urea Nitrogen 80 mg/dL (7-17); Calcium 10.2 mg/dL (8.4-10.2); Carbon Dioxide 20 mmol/L (22-30); Chloride 109 mmol/L (98-107); Estimated CRCL calculation 11 ml/min; Estimated Glomerular Filt Rate 11; Glucose 128 mg/dL (65-105); Potassium 4.8 mmol/L (3.4-5.0); Sodium 138 mmol/L (137-145)
--- NOTE | 2020-05-18 23:05 | PC.NURSE ---
call lab at 10:30 pm to add on at PT INR PTT . Shea said she will find it. Call again this time talk to alana at 11.00pm and she will see whats going on and call me back.
[2020-05-18] MEDS: EPOETIN ALFA 10,000 UNITS/ML VIAL 5000 UNITS SUB-Q (23:11)
[2020-05-18 23:25] VITALS: BP 154/96; PULSE 76; RESP 16; TEMP 36.3; O2SAT 100
[2020-05-18 23:53] LABS: Prothrombin Time 13.3 Seconds (11.1-14.7)
[2020-05-18 23:55] LABS: Partial Thromboplastin Time 77.2 SECONDS (22.3-36.8)
== END 2020-05-19 00:25 | disposition home or self-care (01) ==
PROVIDERS: Emergency Provider Emergency Medicine; PCP Family Medicine
DX: I13.11 Hypertensive heart and chronic kidney disease without heart failure, with stage 5 chronic kidney disease, or end stage renal disease (principal); E11.22 Type 2 diabetes mellitus with diabetic chronic kidney disease; N18.5 Chronic kidney disease, stage 5; K21.9 Gastro-esophageal reflux disease without esophagitis; F32.9 Major depressive disorder, single episode, unspecified; I25.10 Atherosclerotic heart disease of native coronary artery without angina pectoris
CPT/HCPCS: 36415; 80053; 81001; 85025; 85610; 85730; 86850; 86900; 86901; 96372; 99283; J0885; Q4081

== ENCOUNTER 2020-05-27 07:03 | Outpatient (RCR) | payer MEDICARE, MEDICAID, SELFPAY ==
[2020-05-27] VITALS (10 sets, daily range): BP systolic 100–152; BP diastolic 55–73; PULSE 69–75; RESP 15–16; TEMP 36.7–37.1; O2SAT 97–100
[2020-05-27] MEDS: ACETAMINOPHEN 500 MG TABLET PO (08:26)
[2020-05-27 08:34] LABS: Hematocrit 22.4 % (37.0-47.0)
[2020-05-27 08:37] LABS: Hemoglobin 6.9 g/dL (12.0-15.0)
== END 2020-08-25 23:59 | disposition home or self-care (01) ==
LOC: ANHCPCTRAN 07:03
PROVIDERS: PCP Family Medicine; Visit Provider Internal Medicine Nephrology
DX: N18.9 Chronic kidney disease, unspecified (principal); D63.1 Anemia in chronic kidney disease
CPT/HCPCS: 36415; 36430; 85014; 85018; 86850; 86900; 86901; 86923; A9270; P9016

== ENCOUNTER 2020-06-12 14:16 | Emergency (ER) | payer MEDICARE, MEDICAID, SELFPAY ==
[2020-06-12] VITALS (32 sets, daily range): BP systolic 37–104; BP diastolic 11–53; PULSE 47–77; RESP 16–29; O2SAT 95–100
--- NOTE | 2020-06-12 14:48 | ECG_ITS ---
Measurements Intervals [place] Rate: 58 P: 82 MD: 195 QRS: 9 QRSD: 117 T: -19 QT: 561 QTc: 555 Interpretive Statements SINUS BRADYCARDIA ATRIAL PREMATURE COMPLEX INCOMPLETE LEFT BUNDLE BRANCH BLOCK MINIMAL Q WAVES- INFERIOR LEADS BORDERLINE ST-T WAVE ABNORMALITY- DIFFUSE LEADS BASELINE ARTIFACT- V4-V6 ABNORMAL ECG Electronically Signed On 06-17-2020 12:40:46 CDT by Rhett Roldan D.O.
[2020-06-12 14:59] LABS: Basophils Percent Auto 0.1 % (0.2-1.2); Eosinophils Percent Auto 0.1 % (0-4.4); Hematocrit 25.3 % (37.0-47.0); Hemoglobin 7.9 g/dL (12.0-15.0); Immature Granulocyte Absolute 0.08 K/mm3 (0.00-0.031); Immature Granulocyte Percent A 0.8 % (0-0.5); Lymphocytes Absolute Auto 0.36 K/mm3 (0.9-3.2); Lymphocytes Percent Auto 3.6 % (18.3-44.2); Mean Corpuscular HGB Conc 31.2 g/dl (32-36); Mean Corpuscular Volume 99.2 fl (80-100); Mean Platelet Volume 11.6 fl (7.4-10.4); Monocytes Absolute Auto 0.6 K/mm3 (0.1-0.6); Monocytes Percent Auto 5.5 % (2.6-8.5); Neutrophils Absolute Auto 9.1 K/mm3 (1.3-6.7); Neutrophils Percent Auto 89.9 % (45.5-73.1); Nucleated Red Blood Cells Perc 0.2 % (0.0-0.2); Platelet Count Result 217 k/mm3 (150-375); Red Blood Count 2.55 M/mm3 (4.2-5.4); Red Cell Distribution Width 14.6 % (11.5-14.5); White Blood Count 10.1 K/mm3 (4.5-10.0)
--- NOTE | 2020-06-12 15:00 | PC.NURSE ---
edp spoke with pts niece via phone. requesting pt to be placed on hospice. pt does have valid dnr papers.
[2020-06-12] MEDS: SODIUM CHLORIDE 0.9% IV 1,000 ML 999 ML IV CONT (15:04)
--- NOTE | 2020-06-12 15:05 | PC.NURSE ---
pt struggling with breathing, has blowing respirations. able to gain iv access with US, pt is extremely hard stick pt mumbling, unable to understand words.
--- NOTE | 2020-06-12 15:07 | PC.NURSE ---
[facility] sent in DNR paperwork, provided to DR Gentile. stated that niece who is POA, asked for Hospice Care, declined intubation. provider asked that we hold off on xray and ct scan for now
[2020-06-12 15:11] LABS: Lactic Acid Reflex 0.7 mmol/L (0.7-2.1)
[2020-06-12 15:14] LABS: Ovalocytes 1+ (NORMAL); Platelet Estimate Adequate (Adequate)
[2020-06-12 15:25] LABS: Alanine Aminotransferase 10 U/L (4-35); Albumin Level 3.6 g/dL (3.5-5.1); Alkaline Phosphatase 81 U/L (38-126); Anion Gap 25.00001 mmol/L (8-16); Aspartate Amino Transferase 19 U/L (14-36); Bilirubin,Total 0.6 mg/dL (0.2-1.3); Calcium 9.7 mg/dL (8.4-10.2); Carbon Dioxide < 5 mmol/L (22-30); Chloride 106 mmol/L (98-107); Estimated CRCL calculation 4 ml/min; Estimated Glomerular Filt Rate 4; Glucose 163 mg/dL (65-105); Potassium 6.1 mmol/L (3.4-5.0); Sodium 136 mmol/L (137-145); Troponin I 0.075 ng/mL (0.000-0.034)
[2020-06-12 15:36] LABS: Blood Urea Nitrogen 138 mg/dL (7-17)
[2020-06-12] MEDS: INSULIN HUMAN REGULAR (*BKC) 100 UNITS/ML 10 UNITS IV PUSH (15:47)
[2020-06-12] MEDS: DEXTROSE 50% 25 GM/50 ML SYRINGE IV PUSH (15:47)
[2020-06-12] MEDS: CALCIUM GLUCONATE 1,000 MG/10 ML VIAL 1000 MG IV PUSH (15:47)
--- NOTE | 2020-06-12 15:58 | PC.NURSE ---
pt noted to have mottling from middle of trunk radiating down to bilateral lower extremities. blowing sound now has change to snoring vrbo from dr sanchez to place arndt catheter
[2020-06-12] MEDS: SODIUM BICARBONATE 8.4% 50 MEQ/50 ML VIAL (16:20)
--- NOTE | 2020-06-12 16:21 | PC.NURSE ---
pt noted to have a small skin tear to left forearm, cleaned and tegaderm placed on wound
--- NOTE | 2020-06-12 17:08 | PC.NURSE ---
spoke with [facility] they are awaiting consents from poa before arrival to ED
[2020-06-12] MEDS: SODIUM CHLORIDE 0.9% IV 1,000 ML 150 ML IV CONT (17:22)
--- NOTE | 2020-06-12 17:39 | PCCCNOTE ---
06/12/2020 at 1500 Call to ED for Hospice referral. Pt POA able to be reached by phone (Shabana Pinedo). Pt incapable of any decision making d/t deteriorating condition. POA wishes for hospice and comfort measures only. [facility] choosen by POA. [facility] contacted and information given. [facility] contacted POA and needs only signed doc to start.
--- NOTE | 2020-06-12 18:20 | PCCCNOTE ---
06/12/2020 at 1810 [place] with [facility] stated that they received signed consent and nurse is on the way to complete process.
--- NOTE | 2020-06-12 19:38 | ED.AMS ---
HPI - Altered Mental Status General Chief Complaint: Altered Mental Status Stated Complaint: AMS Source: EMS Mode of arrival: EMS Limitations: altered mental status History of Present Illness HPI narrative: 70 yr old with history of CKD, anemia secondary to CKD, diabetes, hyperlipidemia, Alzheimer's dementia was sent from long term with complaints of altered mental status as per the EMS patient has been restless and not following commands. No history of fever or chills. Patient was screened for COVID recently at the long term. Not much of history can be obtained from the patient. As per the EMS blood pressure has been very low and cold to touch MD complaint: altered mental status Severity: severe Related Data Home Medications Medication Instructions Recorded Confirmed Benadryl Itch Stopping 1 applic TOPICAL BID PRN 08/11/19 01/25/20 Brilinta 60 mg PO Q12H 08/11/19 01/25/20 Latuda 60 mg PO DAILY 08/11/19 01/25/20 Levemir U-100 Insulin 15 unit SUBCUT HS 08/11/19 01/25/20 Muscle Rub 1 applic TOPICAL Q8H PRN 08/11/19 01/25/20 Poly-Iron 150 Forte 1 cap PO BID 08/11/19 01/25/20 alum-mag hydroxide-simeth [Maalox 30 ml PO Q6H PRN 08/11/19 01/25/20 Advanced] atorvastatin 10 mg PO HS 08/11/19 01/25/20 buspirone 10 mg PO TID 08/11/19 01/25/20 calcitriol See Rx Instructions .ROUTE .COMPLEX 08/11/19 01/25/20 carvedilol 25 mg PO BID 08/11/19 01/25/20 cyanocobalamin (vitamin B-12) 1,000 mcg PO DAILY 08/11/19 01/25/20 dicyclomine 10 mg PO TID 08/11/19 01/25/20 ergocalciferol (vitamin D2) 50,000 unit PO WEEKLY 08/11/19 01/25/20 escitalopram oxalate [Lexapro] 10 mg PO DAILY 08/11/19 01/25/20 folic acid 1 mg PO BID 08/11/19 01/25/20 guaifenesin 400 mg PO Q6H PRN 08/11/19 01/25/20 hydralazine 100 mg PO TID 08/11/19 01/25/20 isosorbide mononitrate 60 mg PO DAILY 08/11/19 01/25/20 lidocaine HCl [Aspercreme 1 applic TOPICAL DIRECTED PRN 08/11/19 01/25/20 (lidocaine)] magnesium oxide 400 mg PO DAILY 08/11/19 01/25/20 melatonin 10 mg PO HS 08/11/19 01/25/20 nitroglycerin 0.4 mg SUBLINGUAL Q5-15M PRN 08/11/19 01/25/20 omega 2-zjj-vvh-fish oil [Fish Oil] 2 cap PO BID 08/11/19 01/25/20 ondansetron HCl [Zofran] 4 mg PO Q8H PRN 08/11/19 01/25/20 oxybutynin chloride 15 mg PO BID 08/11/19 01/25/20 pantoprazole 20 mg PO QAM 08/11/19 01/25/20 polyvinyl alcohol [Artificial 1 drp OPHTHALMIC (EYE) BID 08/11/19 01/25/20 Tears (polyvin alc)] quetiapine [Seroquel] 300 mg PO HS 08/11/19 01/25/20 sodium chloride [Saline Nasal] 2 spray INTRANASAL Q2H PRN 08/11/19 01/25/20 Levemir U-100 Insulin 5 unit SUBCUT DAILY 01/25/20 01/25/20 tamsulosin [Flomax] 0.4 mg PO HS 01/25/20 01/25/20 Allergies Allergy/AdvReac Type Severity Reaction Status Date / Time iohexol Allergy Unknown Unknown Verified 06/12/20 16:00 [From CONTRAST - CT, XRAY] methylprednisolone Allergy Unknown Verified 06/12/20 16:00 [From Medrol] Penicillins Allergy Unknown Verified 06/12/20 16:00 trazodone Allergy Unknown Verified 06/12/20 16:00 propoxyphene AdvReac Severe Confusion, Verified 06/12/20 16:00 LOOSES CONTROL hydrocodone AdvReac Mild Confusion Verified 06/12/20 16:00 Review of Systems Review of Systems: ROS unobtainable: Yes unobtainable due to mental status PMFSH Past Medical History Medical History Anemia in chronic kidney disease Anxiety Arthritis of knee Bipolar disorder C. 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
--- NOTE | 2020-06-12 19:39 | PC.NURSE ---
[facility] here to asses the pt decision made to take the pt off monitor. [facility] require vs q8 hrs provider and battery charger tester made aware sitter at bedside
--- NOTE | 2020-06-12 20:15 | PC.NURSE ---
pt to be admitted to the floor under [facility], awaiting room assignment. sitter at bedside
--- NOTE | 2020-06-12 20:50 | PC.NURSE ---
awaiting room assignment no new orders at this time. pt in room
== END 2020-06-13 02:08 | disposition hospice, inpatient (51) ==
PROVIDERS: Emergency Provider Family Medicine; PCP Family Medicine
DX: E87.5 Hyperkalemia (principal); I95.9 Hypotension, unspecified; N18.5 Chronic kidney disease, stage 5; R41.82 Altered mental status, unspecified; I12.0 Hypertensive chronic kidney disease with stage 5 chronic kidney disease or end stage renal disease; Z77.22 Contact with and (suspected) exposure to environmental tobacco smoke (acute) (chronic); E11.22 Type 2 diabetes mellitus with diabetic chronic kidney disease; D63.1 Anemia in chronic kidney disease; M17.10 Unilateral primary osteoarthritis, unspecified knee; G30.9 Alzheimer's disease, unspecified; F02.80 Dementia in other diseases classified elsewhere, unspecified severity, without behavioral disturbance, psychotic disturbance, mood disturbance, and anxiety; F31.9 Bipolar disorder, unspecified; K21.9 Gastro-esophageal reflux disease without esophagitis; F25.9 Schizoaffective disorder, unspecified; Z86.73 Personal history of transient ischemic attack (TIA), and cerebral infarction without residual deficits; E11.42 Type 2 diabetes mellitus with diabetic polyneuropathy; I25.10 Atherosclerotic heart disease of native coronary artery without angina pectoris
CPT/HCPCS: 36415; 80053; 83605; 84484; 85025; 93005; 96361; 96374; 96375; 99285; J0610; J1815; J7030

== ENCOUNTER 2020-06-12 22:24 | HOS | payer OTHER, MEDICARE, MEDICAID, SELFPAY ==
[2020-06-12 22:27] VITALS: BMI 27.9
[2020-06-12 22:28] VITALS: BP 49/30; PULSE 53; RESP 18; TEMP 29; O2SAT 96
[2020-06-13 09:00] VITALS: RESP 4
--- NOTE | 2020-06-13 09:00 | PC.NURSE ---
Patient at 909. Time of confirmed by charge lpn. Dr. David notified as well as [facility].
--- NOTE | 2020-06-13 15:27 | PM.IMHP ---
H&P: HPI History of Present Illness Date/Time: 06/13/20 15:27 Chief complaint: Hyperkalemia Narrative: HISTORY WAS OBTAINED FROM [facility] NURSE (DENI) AND FROM CHART REVIEW THE PATIENT THIS MORNING. Basilia Benoit is a 70 year old female [facility] resident with known CKD and Alzheimer dementia who was sent to [facility] ED on 06/12 due to increased confusion, decreased responsiveness, hypotension. Upon arrival she was hypotensive and hypothermic with BUN 138 and creatinine 10.7 (over twice her usual baseline) and potassium 6.1. POA opted for comfort care only. Review of Systems Review of Systems: ROS unobtainable: Yes unobtainable due to medical condition PMFSH Past Medical History Medical History Anemia in chronic kidney disease Anxiety Arthritis of knee Bipolar disorder C. 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:: Cath ([facility]: Mid RCA 70-80% stenosis; PCI and stenting of mid RCA.) - 03/31/2004 Echo/MUGA:: Echo (EF 60-65%, mild LVH, grade I diastolic dysfunction (E/e' 8), mild LAE, mod MAC.) - 06/19/2019 Echo (EF normal; mild LVH, mild LAE, trace AI, trace-mild MR, mild TR.) - 04/20/2014 Electrophysiology:: EKG (Sinus rhythm, borderline AV conduction delay, inferior infarct, age indeterminate) - 12/26/2017 Stress Tests:: MPI (Lexiscan myoview: Negative for ischemia.) - 06/19/2019 MPI ([facility]: Focal lateral apical ischemia.) - 08/13/2006 CKD (chronic kidney disease) stage 5, GFR less than 15 ml/min Closed fracture of superior ramus of left pubis (08/11/19) Closed sacral fracture (~08/11/19) Dementia Depression Diastolic dysfunction Echo June 2019 Elbow fracture, right GERD (gastroesophageal reflux disease) Hypertension, essential Overactive bladder Pelvis ilium fracture (08/11/19) Schizoaffective disorder TIA (transient ischemic attack) Tibial fracture Type 2 diabetes mellitus with diabetic neuropathy Uses wheelchair Surgical History Surgical History Ankle fracture, right With ORIF 1975 History of hysterectomy Family History Family History Mother Cerebrovascular accident Father Hypertension Social History Social History Social History: Primary care physician: Dr. Suellen Garcia Code status: Full code Smoking status: Never smoker Second hand tobacco smoke exposure: Yes (The patient used to live with several smoker's many years ago.) Alcohol intake: never Substance use: never Additional living arrangements comments: [facility]. [facility] since 2010 if not before that. Additional occupation/education comments: Disabled. Gender identity (if verbalized by the patient): Female Spiritual care concerns: Yes Agree to blood products: No Meds Home Medications and Allergies Home Medications Medication Instructions Recorded Confirmed Type Benadryl Itch Stopping 1 applic TOPICAL BID PRN 08/11/19 01/25/20 History Brilinta 60 mg PO Q12H 08/11/19 01/25/20 History Latuda 60 mg PO DAILY 08/11/19 01/25/20 History Levemir U-100 Insulin 15 unit SUBCUT HS 08/11/19 01/25/20 History Muscle Rub 1 applic TOPICAL Q8H PRN 08/11/19 01/25/20 History Poly-Iron 150 Forte 1 cap PO BID 08/11/19 01/25/20 History alum-mag hydroxide-simeth [Maalox 30 ml PO Q6H PRN 08/11/19 01/25/20 History Advanced] atorvastatin 10 mg PO HS 08/11/19 01/25/20 History buspirone 10 mg PO TID 08/11/19 01/25/20 History calcitriol See Rx Instructions .ROUTE .COMPLEX 08/11/19 01/25/20 History carvedilol 25 mg PO BID 08/11/19 01/25/20 History cyanocobalamin (vitamin B-12) 1,000 mcg PO DAILY 08/11/19 01/25/20 History dicyclomine 10 mg PO TID 08/11/19 01/25/20 History ergocalciferol (vitamin D2) 5
--- NOTE | 2020-06-13 15:38 | PM.DDS ---
Discharge Sum: Prov Provider Primary care physician: Suellen Garcia MD Admitting provider: Bonilla David MD Discharge Sum: Diag Contributing Factors (1) MATT (acute kidney injury): (2) CKD (chronic kidney disease) stage 5, GFR less than 15 ml/min: (3) Acute hypotension: (4) Acute hyperkalemia: (5) Dementia: (6) CAD (coronary artery disease): Discharge Sum: Summary Date and Time Date of admission: 06/12/20 22:24 Summary Details: Admitted to inpatient hospice service 9/6 PM. Medications were titrated to comfort. Patient peacefully 9/7 AM. Additional Data Attending physician: Bonilla David MD
== END 2020-06-13 11:30 | disposition expired | DRG 951 ==
PROVIDERS: Admitting Provider Internal Medicine; PCP Family Medicine; Visit Provider Internal Medicine
DX: Z51.5 Encounter for palliative care (principal); N17.9 Acute kidney failure, unspecified; N18.5 Chronic kidney disease, stage 5; R41.82 Altered mental status, unspecified; I95.9 Hypotension, unspecified; E87.5 Hyperkalemia; D63.1 Anemia in chronic kidney disease; R09.02 Hypoxemia; F03.90 Unspecified dementia, unspecified severity, without behavioral disturbance, psychotic disturbance, mood disturbance, and anxiety; I25.10 Atherosclerotic heart disease of native coronary artery without angina pectoris; M17.10 Unilateral primary osteoarthritis, unspecified knee; F31.9 Bipolar disorder, unspecified; K21.9 Gastro-esophageal reflux disease without esophagitis; E11.42 Type 2 diabetes mellitus with diabetic polyneuropathy; F25.9 Schizoaffective disorder, unspecified; N32.81 Overactive bladder; Z95.5 Presence of coronary angioplasty implant and graft; Z86.73 Personal history of transient ischemic attack (TIA), and cerebral infarction without residual deficits
CPT/HCPCS: A9270; J2060; J2270